=== PATIENT | male | born 1980 | race Asian ===

== ENCOUNTER 2021-08-18 09:57 | Outpatient (REF) | payer MEDICAID, SELFPAY ==
--- NOTE | ~2021-08-18 | US_ITS ---
EXAMINATION: US ABDOMEN LIMITED CLINICAL INFORMATION: Lump. Question hernia of left epigastric area. COMPARISON: None. TECHNIQUE: Grayscale, Doppler, and cine images were obtained throughout the epigastric area. FINDINGS: Within the epigastric area in the region of the patient's palpable findings, there is a prominent, anteriorly-oriented xiphoid process. No abnormal soft tissue mass or fluid collection. No significant abdominal wall hernia. No inflammatory change. US/US abdomen limited IMPRESSION: Mildly prominent, anteriorly-oriented xiphoid process in the region of the patient's palpable findings. No abdominal wall hernia, soft tissue mass, or fluid collection.
== END 2021-08-18 09:58 | disposition home or self-care (01) ==
LOC: HO.HMGCX 09:57
PROVIDERS: PCP Internal Medicine; Visit Provider Physician Assistant
DX: K43.9 Ventral hernia without obstruction or gangrene (principal)
CPT/HCPCS: 76705

== ENCOUNTER 2021-09-14 16:22 | Outpatient (REF) | payer MEDICAID, SELFPAY | END 2021-09-14 16:23 | disposition home or self-care (01) | LOC: HO.MANLNP 16:22 | PROVIDERS: PCP Physician Assistant; Visit Provider Physician Assistant | DX: R35.0 Frequency of micturition (principal) | CPT/HCPCS: 87086 ==

== ENCOUNTER 2021-09-16 12:42 | Outpatient (REF) | payer MEDICAID, SELFPAY ==
[2021-09-16 13:01] LABS: MANUAL DIFF FLAG NO
[2021-09-16 13:43] LABS: Basophils Absolute Auto 0.1 X10*3/uL (0.0-0.2); Basophils Percent Auto 1.1 % (0-2); Eosinophils Absolute Auto 0.2 X10*3/uL (0.0-0.4); Eosinophils Percent Auto 3.3 % (0-4); Hematocrit 44.5 % (42.0-52.0); Hemoglobin 14.9 g/dl (14.0-18.0); Imm Gran Abs Auto 0.02 X10*3/uL (0.00-0.03); Imm Gran Pct Auto 0.4 % (0.0-0.4); Lymphocytes Absolute Auto 1.7 X10*3/uL (1.2-4.9); Lymphocytes Percent Auto 31.4 % (20-40); Mean Corpuscular HGB Conc 33.5 g/dl (31.0-36.0); Mean Corpuscular Hemoglobin 31.1 pg (27.0-33.0); Mean Corpuscular Volume 92.9 fL (80.0-98.0); Mean Platelet Volume 10.7 fL (9.4-12.4); Monocytes Absolute Auto 0.3 X10*3/uL (0.1-1.2); Monocytes Percent Auto 5.6 % (2-11); Neutrophils Absolute Auto 3.1 x10*3/uL (2.0-8.3); Neutrophils Percent Auto 58.2 % (45-73); Platelet Count 195 X10*3/uL (160-400); Red Blood Count 4.79 X10*6/uL (4.60-5.80); Red Cell Distribution Width 12.1 % (11.0-16.0); White Blood Count 5.4 X10*3/uL (4.8-10.8)
[2021-09-16 14:30] LABS: Estimated Average Glucose 97 mg/dL
[2021-09-16 14:50] LABS: TSH reflex Free T4 1.28 uIU/mL (0.32-4.0); Vitamin D 25-OH Total 15.9 ng/mL (>30)
[2021-09-16 16:04] LABS: Folate 8.7 ng/mL (> or = 4.0); Vitamin B12 351 pg/mL (200-900)
== END 2021-09-16 12:43 | disposition home or self-care (01) ==
LOC: HO.LAB 12:42
PROVIDERS: Visit Provider Physician Assistant
DX: R53.83 Other fatigue (principal); R35.0 Frequency of micturition
CPT/HCPCS: 36415; 82306; 82607; 82746; 83036; 84443; 85025

== ENCOUNTER 2022-02-22 13:27 | Outpatient (REF) | payer OTHER, SELFPAY ==
[2022-02-22 16:18] LABS: MANUAL DIFF FLAG NO
[2022-02-22 16:19] LABS: Basophils Absolute Auto 0.1 X10*3/uL (0.0-0.2); Basophils Percent Auto 0.6 % (0-2); Eosinophils Absolute Auto 0.2 X10*3/uL (0.0-0.4); Hematocrit 42.5 % (42.0-52.0); Hemoglobin 14.1 g/dl (14.0-18.0); Imm Gran Abs Auto 0.02 X10*3/uL (0.00-0.03); Imm Gran Pct Auto 0.3 % (0.0-0.4); Lymphocytes Absolute Auto 1.9 X10*3/uL (1.2-4.9); Lymphocytes Percent Auto 24.5 % (20-40); Mean Corpuscular HGB Conc 33.2 g/dl (31.0-36.0); Mean Corpuscular Hemoglobin 30.4 pg (27.0-33.0); Mean Corpuscular Volume 91.6 fL (80.0-98.0); Monocytes Absolute Auto 0.4 X10*3/uL (0.1-1.2); Monocytes Percent Auto 4.8 % (2-11); Neutrophils Absolute Auto 5.4 x10*3/uL (2.0-8.3); Neutrophils Percent Auto 67.8 % (45-73); Platelet Count 187 X10*3/uL (160-400); Red Blood Count 4.64 X10*6/uL (4.60-5.80); Red Cell Distribution Width 12.2 % (11.0-16.0); White Blood Count 7.9 X10*3/uL (4.8-10.8)
[2022-02-22 16:40] LABS: Alanine Aminotransferase 13 U/L (0-40); Albumin Level 4.3 g/dL (3.5-5.0); Alkaline Phosphatase 53 U/L (39-117); Anion Gap 11 (12-20); Aspartate Amino Transferase 17 U/L (5-37); Bilirubin Total 1.4 mg/dL (0.0-1.0); Blood Urea Nitrogen 10 mg/dL (9-16); Calcium 9.1 mg/dL (8.4-10.2); Carbon Dioxide 27 mmol/L (22-29); Chloride 107 mmol/L (96-108); Cholesterol 167 mg/dL; Estimated Glomerular Filt Rate > 60; Glucose Random 86 mg/dL (60-115); HDL Cholesterol 47 mg/dL; LDL Cholesterol Calculated 109 mg/dl; Potassium 3.9 mmol/L (3.3-5.1); Sodium 141 mmol/L (135-145); Total Protein 6.9 g/dL (6.5-8.0); Triglycerides 58 mg/dL
== END 2022-02-22 13:28 | disposition home or self-care (01) ==
LOC: HO.HMGCLDS 13:27
PROVIDERS: Visit Provider Physician Assistant
DX: Z00.00 Encounter for general adult medical examination without abnormal findings (principal); Z13.220 Encounter for screening for lipoid disorders
CPT/HCPCS: 36415; 80053; 80061; 85025

== ENCOUNTER → 2023-04-27 14:17 | Outpatient (BNVA) | payer OTHER, SELFPAY | PROVIDERS: PCP Physician Assistant; Visit Provider Nurse Practitioner Family ==

== ENCOUNTER 2023-06-09 08:21 | Outpatient (REF) | payer OTHER, SELFPAY ==
--- NOTE | ~2023-06-09 | CT_ITS ---
EXAMINATION: CT ENTEROGRAPHY ABDOMEN AND PELVIS WITH CONTRAST CLINICAL INFORMATION: Family history of malignant neoplasm of the chest organs COMPARISON: Previous limited abdominal ultrasound July 2021 TECHNIQUE: Study performed with oral VoLumen (1350 mL) and 480 mL of water to distend the abdomen. The patient was injected with 85 mL Omnipaque 350 intravenous contrast which was administered without adverse effect. Coronal and sagittal reformatted images were obtained at the technologist's workstation. This CT examination was performed using dose optimization techniques as appropriate, variously including the following: *Automated exposure control *Adjustment of mA and/or kV according to patient size (this includes techniques or standardized protocols for targeted exams where dose is matched to indication/reason for exam; i.e. extremities or head) *Use of iterative reconstruction technique DLP: 434 mGy-cm FINDINGS: GASTROINTESTINAL FINDINGS: Stomach: Well-distended and normal in appearance. Small intestine: Satisfactorily distended and normal in appearance. Large intestine: Well-distended and normal in appearance. No perirectal changes demonstrated. The appendix is normal. Additional findings: No abnormal enhancement of the vasa recta or significant mesenteric or retroperitoneal lymphadenopathy is seen. No abdominal abscess or fistulous tract demonstrated. ABDOMINAL AND PELVIC CT FINDINGS: Liver, gallbladder, biliary tract: 1 x 1.5 cm low-attenuation lesion in the posterior segment of the right lobe of the liver axial image 54 series 3 and this has quite questionable peripheral puddling enhancement. Small 5 mm low-attenuation lesion right lobe axial image 60 series 3 Small calcification in the right lobe of the liver. Normal gallbladder. No biliary duct dilatation. Pancreas: Normal Spleen: Normal Adrenal glands and kidneys: There is a small subcentimeter low-attenuation lesion in the upper pole of the left kidney. This probably represents a cyst. No imaging follow-up recommended. The adrenal glands and kidneys are otherwise normal. Ureters and bladder: Normal Lymphovascular structures: Normal Bones: Normal Lung bases: Normal CT/CT enterography IMPRESSION: Small liver lesions, question representing hemangiomas. Otherwise unremarkable CT enterography exam.
[2023-06-09] MEDS: Sorbitol/Mannit/Xanth Imaging 500 ML LIQUID 1500 ML PO (11:38)
[2023-06-09] MEDS: iohexoL 350 MG/ML 100 ML INFUS..BTL IV (11:40)
== END 2023-06-09 08:22 | disposition home or self-care (01) ==
LOC: HO.CT 08:21
PROVIDERS: PCP Internal Medicine; Visit Provider Nurse Practitioner Family
DX: K76.9 Liver disease, unspecified (principal); Z80.0 Family history of malignant neoplasm of digestive organs
CPT/HCPCS: 74177; Q9967

== ENCOUNTER 2023-08-16 08:03 | Outpatient (REF) | payer OTHER, SELFPAY ==
--- NOTE | ~2023-08-16 | XR_ITS ---
EXAMINATION: XR SINUSES CLINICAL INFORMATION: Atypical facial pain COMPARISON: None available. TECHNIQUE: 4 views of paranasal sinuses FINDINGS: Paranasal sinuses appear clear without air-fluid levels. No fractures are identified. No radiodense foreign bodies. XR/XR sinus min 3V IMPRESSION: Unremarkable examination.
== END 2023-08-16 08:04 | disposition home or self-care (01) ==
LOC: HO.XRAY 08:03
PROVIDERS: PCP Internal Medicine; Visit Provider Internal Medicine
DX: G50.1 Atypical facial pain (principal)
CPT/HCPCS: 70220

== ENCOUNTER 2023-10-28 13:45 | Outpatient (AMB) | payer OTHER, SELFPAY ==
--- NOTE | 2023-10-28 13:58 | MHC.OFFVIS ---
Intake Vital Signs 10/28/23 14:01 Height 5 ft 6 in Weight 171 lb BMI 27.6 BP 122/68 Blood Pressure Location Lt brachial Position Sitting Pulse 83 Intake Visit Reasons: 6 mnth follow up Intake Note: Patient [address] scan results. Patient cc: diarrhea in the morning and denies any other GI issues. Wall And Floor Tiler Required: No Accompanied by: Self / Same As Patient Allergies adhesive tape Allergy (Unknown, Verified 10/28/23 13:58) Rash peanut mold Allergy (Mild, Uncoded 04/27/23 14:45) Itching HPI 6 mnth follow up HPI Details LAST VISIT: Family history of cancer of small intestine Patient denies any GI concerning symptoms. Here because family history of small bowel cancer. Will order CT enterography and colonography for now. If any abnormal findings patient will be sent for colonoscopy. Will hold off for now. Patient will call the office if he will experience any blood in his stools, black stools, unintentional weight loss, ribbon like stools. If he will experience any change in his bowel habits that will include diarrhea, mucus in his stool. I will see patient in 6 months, sooner on as needed basis. Patient is agreeable to this plan and verbalizes understanding of instructions. He was given the opportunity to ask questions and all questions answered. ? Thank you for allowing me to participate in his care Plan Orders Orders CT colonography 04/27/23 Z80.0 - Family history of malignant neoplasm of digestive organs CT enterography 04/27/23 Z80.0 - Family history of malignant neoplasm of digestive organs TODAY'S VISIT: Patient is here today for follow-up and to discuss CT colonography and enterography results. As mentioned above patient has a family history of small-bowel cancer. Normal CT results discussed with patient. Patient reports occasional diarrhea especially in the morning. Patient denies any dyspepsia, dysphagia or odynophagia. Denies any melena, hematochezia, unintentional weight loss or ribbon like stools. Patient admits to being under stress as he is selling his condo and moving to his friend's house. Patient denies any other GI concerning symptoms PFSH Family History Paternal Grandfather Colon cancer Social History Household Members: None Alcohol intake: current Alcohol intake frequency: a few times a month Patient Tobacco Use Status: Never used Tobacco e-Cigarette/Vaping Use: Never Used Review of Systems Const Denies weight gain and Denies weight loss ENT Reports no additional complaints, Denies dysphagia and Denies odynophagia Card Reports no additional complaints Resp Reports no additional complaints GI Denies abdominal pain, Denies belching, Denies melena, Denies bloating, Denies change in bowel habits, Denies dysphagia, Denies excessive flatus, Denies dyspepsia, Denies heartburn, Denies diarrhea, Denies loose stools, Denies nausea, Denies odynophagia and Denies vomiting Reports no additional complaints Musc Reports no additional complaints Neuro Reports no additional complaints Psych Reports no additional complaints Endo Reports no additional complaints Physical Exam Vital Signs: Last Vital Signs Pulse 83 10/28/23 14:01 BP 122/68 10/28/23 14:01 BMI result Body Mass Index 27.6 Const General: healthy appearing, no acute distress and well developed Nutritional Appearance: well nourished Orientation/consciousness: patient oriented x3 Resp Effort & Inspection: normal respiratory effort, able to speak in complete sentences, no tracheal deviation and symmetric chest movement Auscultation: clear to auscultation bilaterally Cardio Rate: regular rate GI Inspection: Yes normal to inspection and No distended Palpation (GI): Soft to palpation, not firm, nontender and No hepatosplenomegaly present Auscultation: normal bowel sounds General: Yes no CVA tenderness Back/Spine/Pelvis Back: no CVA tenderness Skin General skin exam: elasticity normal, turgor normal and dry skin Neuro General: patient oriented x3 Psych Appearance: grossly normal Mental Status: mental status grossly normal Results Reviewed Results Reviewed: CT ENTEROGRAPHY: FINDINGS: GASTROINTESTINAL FINDINGS: Stomach: Well-distended and normal in appearance. Small intestine: Satisfactorily distended and normal in appearance. Large intestine: Well-distended and normal in appearance. No perirectal changes demonstrated. The appendix is normal. Additional findings: No abnormal enhancement of the vasa recta or significant mesenteric or retroperitoneal lymphadenopathy is seen. No abdominal abscess or fistulous tract demonstrated. ABDOMINAL AND PELVIC CT FINDINGS: Liver, gallbladder, biliary tract: 1 x 1.5 cm low-attenuation lesion in the posterior segment of the right lobe of the liver axial image 54 series 3 and this has quite questionable peripheral puddling enhancement. Small 5 mm low-attenuation lesion right lobe axial image 60 series 3 Small calcification in the right lobe of the liver. Normal gallbladder. No biliary duct dilatation. Pancreas: Normal Spleen: Normal Adrenal glands and kidneys: There is a small subcentimeter low-attenuation lesion in the upper pole of the left kidney. This probably represents a cyst. No imaging follow-up recommended. The adrenal glands and kidneys are otherwise normal. Ureters and bladder: Normal Lymphovascular structures: Normal Bones: Normal Lung bases: Normal CT/CT enterography IMPRESSION: Small liver lesions, question representing hemangiomas. Otherwise unremarkable CT enterography exam. Assessment & Plan Assessment & Plan (1) Family history of cancer of small intestine: Code(s): Z80.0 - Family history of malignant neoplasm of digestive organs (2) Liver hemangioma: Code(s): D18.03 - Hemangioma of intra-abdominal structures Plan CT results discussed with patient. Patient will return in 1 year. Will order limited ultrasound of the liver to evaluate hemangiomas as seen on CT scan. Patient will call our office if he will have any GI concerning symptoms. He is agreeable to this plan and verbalizes understanding of instructions. He was given the opportunity to ask questions and all questions answered. Thank you for allowing me to participate in his care Coding Level of Care Code Est Pt Level 3 (84042) Diagnoses Family history of cancer of small intestine Z80.0 Liver hemangioma D18.03 Time Spent (min) 30 Comment 20 minutes spent with patient and additional 10 minutes spent reviewing his records
[2023-10-28 14:01] VITALS: BP 122/68; PULSE 83; BMI 27.6
== END 2023-10-28 14:42 | disposition home or self-care (01) ==
PROVIDERS: PCP Physician Assistant; Visit Provider Nurse Practitioner Family
DX: Z80.0 Family history of malignant neoplasm of digestive organs (principal); D18.03 Hemangioma of intra-abdominal structures
CPT/HCPCS: 99213

== ENCOUNTER → 2023-10-28 13:45 | Outpatient (BNVA) | payer OTHER, SELFPAY | PROVIDERS: PCP Physician Assistant; Visit Provider Nurse Practitioner Family ==

== ENCOUNTER 2024-03-02 08:17 | Outpatient (REF) | payer OTHER, SELFPAY ==
[2024-03-02 13:09] LABS: MANUAL DIFF FLAG NO
[2024-03-02 13:33] LABS: Basophils Absolute Auto 0.1 X10*3/uL (0.0-0.2); Basophils Percent Auto 1.2 % (0-2); Eosinophils Absolute Auto 0.4 X10*3/uL (0.0-0.4); Eosinophils Percent Auto 6.9 % (0-4); Hematocrit 47.3 % (42.0-52.0); Hemoglobin 15.8 g/dl (14.0-18.0); Imm Gran Abs Auto 0.01 X10*3/uL (0.00-0.03); Imm Gran Pct Auto 0.2 % (0.0-0.4); Lymphocytes Absolute Auto 1.5 X10*3/uL (1.2-4.9); Lymphocytes Percent Auto 25.3 % (20-40); Mean Corpuscular HGB Conc 33.4 g/dl (31.0-36.0); Mean Corpuscular Hemoglobin 30.7 pg (27.0-33.0); Mean Corpuscular Volume 91.8 fL (80.0-98.0); Mean Platelet Volume 10.9 fL (9.4-12.4); Monocytes Absolute Auto 0.4 X10*3/uL (0.1-1.2); Monocytes Percent Auto 6.2 % (2-11); Neutrophils Absolute Auto 3.5 x10*3/uL (2.0-8.3); Neutrophils Percent Auto 60.2 % (45-73); Platelet Count 203 X10*3/uL (160-400); Red Blood Count 5.15 X10*6/uL (4.60-5.80); Red Cell Distribution Width 12.2 % (11.0-16.0); White Blood Count 5.8 X10*3/uL (4.8-10.8)
[2024-03-02 13:45] LABS: Estimated Average Glucose 105 mg/dL; Hemoglobin A1c % 5.3 % (<6.0)
[2024-03-02 14:15] LABS: Erythrocyte Sedimentation Rate 1 MM/HR (0-15)
[2024-03-02 14:53] LABS: Alanine Aminotransferase 38 U/L (0-40); Albumin Level 4.4 g/dL (3.5-5.0); Alkaline Phosphatase 56 U/L (39-117); Amylase 34 U/L (28-100); Anion Gap 13 (12-20); Aspartate Amino Transferase 23 U/L (5-37); Bilirubin Total 1.9 mg/dL (0.0-1.0); Blood Urea Nitrogen 9 mg/dL (9-16); C Reactive Protein < 0.04 mg/dL (< or = 0.50); Calcium 9.6 mg/dL (8.4-10.2); Carbon Dioxide 28 mmol/L (22-29); Chloride 106 mmol/L (96-108); Cholesterol 209 mg/dL (<200); Estimated Glomerular Filt Rate > 60; Gamma Glutamyl Transpeptidase 19 U/L (11-51); Glucose Random 89 mg/dL (60-115); HDL Cholesterol 40 mg/dL (>40); Iron 195 mcg/dL (45-160); LDL Cholesterol Calculated 139 mg/dL (<100); Lipase 17 U/L (8-78); Percent Iron Saturation 56 % (15-50); Sodium 143 mmol/L (135-145); Total Iron Binding Capacity 350 mcg/dL (228-428); Total Protein 7.3 g/dL (6.5-8.0); Triglycerides 150 mg/dL (<150); Unsaturated Iron Binding 155 ug/dL
[2024-03-02 15:02] LABS: Ferritin 251 ng/mL (20-250); Vitamin D 25-OH Total 14.2 ng/mL (>30)
[2024-03-05 11:24] LABS: Free Prostate Spec Ag 0.2 ng/mL; Percent Free Prostate Spec Ag 29 % (calc) (>25); Prostate Specific Ag Total 0.7 ng/mL (< OR = 4.0)
== END 2024-03-02 08:18 | disposition home or self-care (01) ==
LOC: HO.MANLDS 08:17
PROVIDERS: Visit Provider Physician Assistant
DX: Z00.00 Encounter for general adult medical examination without abnormal findings (principal); Z12.5 Encounter for screening for malignant neoplasm of prostate; Z13.6 Encounter for screening for cardiovascular disorders; A07.8 Other specified protozoal intestinal diseases
CPT/HCPCS: 36415; 80053; 80061; 82150; 82306; 82728; 82977; 83036; 83540; 83690; 84154; 85025; 85652; 86140

== ENCOUNTER 2024-03-16 08:13 | Outpatient (REF) | payer OTHER, SELFPAY ==
[2024-03-16 13:53] LABS: Iron 148 mcg/dL (45-160); Percent Iron Saturation 44 % (15-50); Total Iron Binding Capacity 337 mcg/dL (228-428); Unsaturated Iron Binding 189 ug/dL
[2024-03-16 13:57] LABS: Ferritin 210 ng/mL (20-250)
== END 2024-03-16 08:14 | disposition home or self-care (01) ==
LOC: HO.MANLDS 08:13
PROVIDERS: Visit Provider Physician Assistant
DX: Z00.00 Encounter for general adult medical examination without abnormal findings (principal); A07.8 Other specified protozoal intestinal diseases
CPT/HCPCS: 36415; 82728; 83540

== ENCOUNTER 2024-05-22 08:06 | Outpatient (REF) | payer OTHER, SELFPAY ==
[2024-05-22 14:35] LABS: Vitamin D 25-OH Total 37.5 ng/mL (>30)
== END 2024-05-22 08:07 | disposition home or self-care (01) ==
LOC: HO.MANLDS 08:06
PROVIDERS: Visit Provider Physician Assistant
DX: Z00.00 Encounter for general adult medical examination without abnormal findings (principal)
CPT/HCPCS: 36415; 82306

== ENCOUNTER 2024-10-26 14:13 | Outpatient (AMB) | payer OTHER, SELFPAY ==
[2024-10-26 14:15] VITALS: BP 142/76; PULSE 92; O2SAT 96; BMI 27.5
--- NOTE | 2024-10-26 14:15 | MHC.OFFVIS ---
Vital Signs 10/26/24 14:15 Height 5 ft 6 in Weight 170 lb 10.205 oz BMI 27.5 BP 142/76 H Blood Pressure Location Rt brachial Position Sitting Pulse 92 Pulse Source Pulse Oximeter Pulse Oximetry (%) 96 Oxygen Delivery Method Room Air Intake Visit Reasons: 1 year follow up Intake Note: ESTABLISHED PATIENT Reason; scheduled in office 1 YR FUV Changes/concerns? Pt reports mild constipation. No other concerns. Pt also reporting urology concerns. Pt has not seen Urology since he lived in [place]. Pharmacy verified? [facility] Signals Collector/Analyst Required: No Allergies mold Allergy (Severe, Verified 10/26/24 14:19) Itching adhesive tape Allergy (Unknown, Verified 10/26/24 14:19) Rash HPI HPI 1 year follow up: Details: LAST VISIT: Family history of cancer of small intestine Liver hemangioma Plan CT results discussed with patient. Patient will return in 1 year. Will order limited ultrasound of the liver to evaluate hemangiomas as seen on CT scan. Patient will call our office if he will have any GI concerning symptoms. He is agreeable to this plan and verbalizes understanding of instructions. He was given the opportunity to ask questions and all questions answered. TODAY'S VISIT: Patient is here today for follow-up. Patient reports that he notice his stool is darker now. Denies having melena or hematochezia, unintentional weight loss or ribbon like stools, however he reports that he feels like he is more constipated now. Patient does not drink enough fluids and his diet does not consist of much of vegetables. Patient denies any GI concerning symptoms. Here today to re-evaluate liver hemangiomas. Patient will go for limited ultrasound to evaluate for that. Patient denies any abdominal pain or discomfort. Reports noticed since August to have worsening urinary hesitancy. Patient reports that he saw urologist when he was in [place] on the visit and he was told that he might have enlarged prostate. [facility] Family History Paternal Grandfather Colon cancer Social History Household Members: None Alcohol intake: current Alcohol intake frequency: a few times a month Patient Tobacco Use Status: Never used Tobacco e-Cigarette/Vaping Use: Never Used Review of Systems Const Denies weight gain and Denies weight loss ENT Reports no additional complaints, Denies dysphagia and Denies odynophagia Card Reports no additional complaints Resp Reports no additional complaints GI Denies abdominal pain, Denies belching, Denies melena, Denies bloating, Denies change in bowel habits, Reports constipation, Denies dysphagia, Denies excessive flatus, Denies dyspepsia, Denies heartburn, Denies diarrhea, Denies loose stools, Denies nausea, Denies odynophagia and Denies vomiting Reports no additional complaints Musc Reports no additional complaints Neuro Reports no additional complaints Psych Reports no additional complaints Endo Reports no additional complaints Physical Exam Const General: healthy appearing, no acute distress and well developed Nutritional Appearance: well nourished Orientation/consciousness: patient oriented x3 Resp Effort & Inspection: normal respiratory effort, able to speak in complete sentences, no tracheal deviation and symmetric chest movement Auscultation: clear to auscultation bilaterally Cardio Rate: regular rate GI Inspection: Yes normal to inspection and No distended Palpation (GI): Soft to palpation, not firm, nontender and No hepatosplenomegaly present Auscultation: normal bowel sounds General: Yes no CVA tenderness Back/Spine/Pelvis Back: no CVA tenderness Skin General skin exam: elasticity normal, turgor normal and dry skin Neuro General: patient oriented x3 Psych Appearance: grossly normal Mental Status: mental status grossly normal Assessment & Plan Assessment & Plan (1) Liver hemangioma: Code(s): D18.03 - Hemangioma of intra-abdominal structures (2) Family history of cancer of small intestine: Code(s): Z80.0 - Family history of malignant neoplasm of digestive organs (3) Urinary hesitancy: Code(s): R39.11 - Hesitancy of micturition (4) Constipation: Code(s): K59.00 - Constipation, unspecified Qualifiers: Constipation type: slow transit constipation Qualified Code(s): K59.01 - Slow transit constipation Plan Limited ultrasound of the abdomen to re-evaluate liver hemangiomas. Patient reports urinary hesitancy possible due to enlarged prostate. Patient will be referred to urologist. Dark stool, negative for melena hematochezia. Patient will think about it if he wants to go for colonoscopy which was offered him today. Patient does have a family history of small intestine cancer. Paternal grandfather which he was not close with and does not know for sure. Patient reports constipation. Increase fluid intake and activity to promote better bowel motility. Patient was encouraged to get [id number] fiber with probiotics. Increase fiber in his diet as well. Patient will follow-up in our office in 1 year. He will call us if he will have any GI concerning symptoms. He is agreeable to this plan and verbalizes understanding of instructions. He was given the opportunity to ask questions and all questions answered. Thank you for allowing me participate in his care Orders: Orders US abdomen limited Today D18.03 - Hemangioma of intra-abdominal structures Referrals Urology Referral R39.11 - Hesitancy of micturition Coding Level of Care Code Est Pt Level 3 (43101) Diagnoses Liver hemangioma D18.03 Family history of cancer of small intestine Z80.0 Urinary hesitancy R39.11 Slow transit constipation K59.01 Constipation type: slow transit constipation Time Spent (min) 25 Comment 15 minutes spent with patient and additional 10 minutes spent reviewing his records
== END 2024-10-26 14:42 | disposition home or self-care (01) ==
PROVIDERS: PCP Physician Assistant; Visit Provider Nurse Practitioner Family
DX: D18.03 Hemangioma of intra-abdominal structures (principal); Z80.0 Family history of malignant neoplasm of digestive organs; R39.11 Hesitancy of micturition; K59.01 Slow transit constipation
CPT/HCPCS: 99213

== ENCOUNTER → 2024-10-26 14:13 | Outpatient (BNVA) | payer OTHER, SELFPAY | PROVIDERS: PCP Physician Assistant; Visit Provider Nurse Practitioner Family ==

== ENCOUNTER 2024-12-12 07:43 | Outpatient (REF) | payer OTHER, SELFPAY ==
--- NOTE | ~2024-12-12 | US_ITS ---
CLINICAL HISTORY: D18.03 - Hemangioma of intra-abdominal structures Limited abdominal ultrasound Comparison: None Findings: The liver is normal in size, measuring 15.5 cm in length. Normal echogenicity with an echogenic lesion in the right lobe of the liver measuring 2.0 x 2.0 x 1.8 cm, likely a hemangioma. Hepatopetal flow is seen within the portal vein. The common bile duct is normal in diameter, measuring 0.3 cm. No cholelithiasis. No wall thickening or pericholecystic fluid. Negative sonographic Orosco sign. The right kidney is normal in echogenicity and size, measuring 11.5 cm in length. Unremarkable limited evaluation of the pancreas. Impression: 2.0 cm echogenic lesion in the right lobe of the liver is likely a hemangioma. Negative for acute cholecystitis. This document has been electronically signed by: Joanne Cobb MD on 12/12/2024 21:14:30
--- OUTSIDE RECORDS SUMMARY | 2024-12-12 07:45 | XMS_ITS | Continuity of Care Document ---
Demographics Address [address] [place] [address] Home Phone Mobile Phone Email Address Preferred Language en Marital Status Never Rastafarian Affiliation Unknown Race White Ethnic Group Not or Lati no Author Organization [facility] Address [address] [place] [address] [place] [address] Assessment No assessment recorded. Plan of Treatment Reminders Order Date Submit Date Provider Last Modified By Organization Details Last Modified Time Details Appointments ANNUAL EXAM 2024 02:15P MOE EUBANKS Not available Not available Not available Lab iron + TIBC + ferritin, serum 2024 025 [email or web address] [facility], [address] [place] [address], [id number], 11/27/2024 09:46:11 CMP, serum or plasma 2024 025 [email or web address] [facility], [address] [place] [address], [id number], 11/27/2024 09:46:11 CBC w/ auto diff 2024 025 [email or web address] [facility], [address] [place] [address], [id number], 11/27/2024 09:46:11 hemoglobi n A1c, QN, blood 2024 025 [email or web address] [facility], [address] [place] [address], [id number], 11/27/2024 09:46:11 testoster one, free + total, serum 2024 025 [email or web address] [facility], [address] [place] [address], [id number], 11/27/2024 09:46:11 vitamin B12 + folate, serum or blood 2024 025 [facility], [address] [place] [address], [id number], 11/27/2024 09:46:11 vitamin D, 25-hydrox y, total, serum 2024 025 [facility], [address] [place] [address], [id number], 11/27/2024 09:46:10 ESR (erythroc yte sedimenta tion rate), blood 2024 025 [facility], [address] [place] [address], [id number], 11/27/2024 09:46:11 C-reactiv e protein, quantitat libra, serum or plasma 2024 025 [facility], [address] [place] [address], [id number], 11/27/2024 09:46:11 TSH + free T4, serum 2024 025 [facility], [address] [place] [address], [id number], 11/27/2024 09:46:11 PTH (parathyr oid hormone), intact + calcium, serum or plasma 2024 025 [facility], [address] [place] [address], [id number], 11/27/2024 09:46:11 Referral None recorded. Procedures None recorded. Surgeries None recorded. Imaging None recorded. Medication Orders None recorded. Patient TargetsNo targets recorded. Patient InstructionsNo instructions recorded. Reason for Referral None Reported. Problems Name Problem SNOMED Code Status Onset Date Resolution Date Notes Provider Name and Address Organization Details Recorded Time History of depression 081706725 [facility] 8 12:22:54 Lipoma of skin 762315839 Active 2022 MOE BAUMAN [address] [place] [address], [id number], [facility] 3 15:52:18 Eczema 97779611 Active 2022 MOE BAUMAN [address] [place] [address], [id number], [facility] 3 15:56:40 Weight gain 9014368 Active 2022 MOE BAUMAN [address] [place] [address], [phone], [facility] 3 15:58:06 Atypical facial pain 15540350 Active 2022 MOE BAUMAN [address] [place] [address], [phone], [facility] 3 10:31:19 Diarrhea 64249136 Active 2023 MOE BAUMAN [address] [place] [address], [phone], [facility] 4 15:41:25 Esophageal dysphagia 38364628 Active 2023 MOE BAUMAN [address] [place] [address], [address], [facility] 4 15:58:58 Lipoma of head and/or neck 892700428 Active 2023 MOE BAUMAN [address] [place] [address], [id number], [facility] 4 16:00:52 Fatigue 83471436 Active 2024 MOE BAUMAN [address] [place] [address], [phone], [facility] 5 09:41:00 Influenza caused by Influenza A virus 241357853 Active 2024 MOE BAUMAN [address] [place] [address] [place], [address], [facility] 5 09:42:03 Problem Notes None recorded. Medical Equipment None Reported. Allergies No known drug allergies Medications Name Sig Start Date Stop Date Status Note LastModified by Organization Details LastModified Time meclizine 12.5 mg tablet TAKE 1 TABLET BY MOUTH EVERY 6 HOURS NEEDED 07/31 completed Not Available Not Available Not Available triamcinolo ne acetonide 0.1 % topical cream APPLY THIN COAT TO AFFECTED AREA TWICE A DAY active Not Available Not Available No t Available doxycycline monohydrate 100 mg capsule TAKE 1 CAPSULE BY MOUTH TWICE A DAY FOR 10 DAYS 11/27 completed Not Available Not Available Not Available fluticasone propionate 50 mcg/actuati on nasal spray,suspe nsion USE 2 SPRAYS IN EACH NOSTRIL EVERY DAY 07/31 completed Not Available Not Available Not Available cyclobenzap rine 5 mg tablet TAKE 1 TABLET BY MOUTH 3 TIMES A DAY NEEDED FOR PAIN 11/27 completed Not Available Not Available Not Available cholecalcif clarence (vitamin D3) 1,250 mcg (50,000 unit) capsule TAKE 1 CAPSULE BY MOUTH ONCE A WEEK 09/14 completed Not Available Not Available Not Available Vitals Date Recorded Body height Body mass index (BMI) Body weight Heart rate Oxygen saturation Oxygen saturation in Arterial blood by Pulse oximetry Systolic blood pressure Diastolic blood pressure Provider Name and Address Organization Details Last Updated DateTime 5 167.01 cm 27 kg/m2 01642.9 7 g 84 /min 97 % 97 % 112 mm[Hg] 78 mm[Hg] Celena Aldrich [facility] 5 09:24:08 Social History Question Answer Notes LastModified by Organizat ion Details LastModified Time Tobacco Smoking Status Never Smoker Not Available [employer] 08/26/2020 03:36:24 What Was The Date Of Your Most Recent Tobacco Screening? 11/27/2024 [email or web address] Information not available 11/27/2024 Do You Or Have You Ever Used Any Other Forms Of Tobacco Or Nicotine? No [email or web address] Information not available 02/21/2023 Sex: Unknown Functional Status None recorded. Mental Status None recorded. Family History Relationship Description Onset Age of this Age Resolved Age Notes LastModified by Organization Details LastModified Time Paternal Grandfather Malignant tumor of colon [email or web address] Not available 2021 15:45:31 Medical History No medical history recorded. Immunizations Vaccine Type Date Status Note Provider Nam e and Address Organization Details Recorded Time COVID-19, mRNA, LNP-S, PF, 30 mcg/0.3 mL dose 02/20/2021 completed Iesha cam [facility] 07/31/2021 09:23:33 COVID-19, mRNA, LNP-S, PF, 30 mcg/0.3 mL dose 03/13/2021 completed Iesha cam [facility] 07/31/2021 09:23:38 Past Encounters Encounter ID Performer Location Encounter Start Date Encounter Closed Date Diagnosis/Indication Diagnosis SNOMED-CT Code Diagnosis ICD10 Code Diagnosis Note [id number] OME BAUMAN [facility] [address] [place] [address] 11/27/2024 09:14:21 11/27/2024 10:25:17 Fatigue 45564152 R53.83 will check lab work Influenza caused by Influenza A virus 533110067 J09.X2 resolved Health Concerns Section Related Observation LastModified by Organization Detai ls LastModified Time None Recorded Concern Status LastModified by Organization Details LastModified Time None Recorded Payers Encounter Date Sequence Insurance Name Policy Number Policy Bowman Covered Member ID Bowman Member ID Guarantor Name 11/27/2024 1 [facility] [id number] 1 Caesar Ashley [id number] Caesar Ashley Notes Date Note Type Note Provider Name and Address Organization Details Recorded Time 5 text/html c/o fatigue the patient reports that he is having a lot of fatiguethe patient reports that it worsens after eating, especially after high caloric, high carb foods is seeing uro for urinary hesitancy did have the Flu for about a week which he has recovered from denies headaches, blurred vision, body aches no fever, no chills, no sob, no chest pain eating okay, no bloating, abdominal pain, no n/v/d the patient denies constipationdenies any blood in the urine or stooldenies flank pain MOE BAUMAN [address] [place], [address], [facility] 11/27/2024 09:48:31
--- OUTSIDE RECORDS SUMMARY | 2024-12-12 07:45 | XMS_ITS | Data Portability ---
Demographics Address [address] [place] [address] Home Phone Mobile Phone Email Address Preferred Language en Marital Status Never Amish Affiliation Unknown Race White Ethnic Group Not or Lati no Author Organization [facility] Home Service Address [address] [place] [address] Assessment No assessment recorded. Plan of Treatment Reminders Order Date Submit Date Provider Last Modified By Organization Details Last Modified Time Details Appointments ANNUA L EXAM 2024 02:15P MOE EUBANKS Not available Not available Not available Lab iron + TIBC + ximena tin, serum 2024 025 [email or web address] [facility], [address] [place] [address], [id number], 11/27/2024 09:46:11 CMP, serum or plasm a 2024 025 [email or web address] [facility], [address] [place] [address], [id number], 11/27/2024 09:46:11 CBC w/ auto diff 2024 025 [email or web address] [facility], [address] [place] [address], [id number], 11/27/2024 09:46:11 hemog lobin A1c, QN, blood 2024 025 [email or web address] [facility], [address] [place] [address], [address], 11/27/2024 09:46:11 testo stero ne, free + total , serum 2024 025 [email or web address] [facility], [address] [place] [address], [address], 11/27/2024 09:46:11 vitam in B12 + folat e, serum or blood 2024 025 [email or web address] [facility], [address] [place] [address], [place], [address], 11/27/2024 09:46:11 vitam in D, 25-hy droxy , total , serum 2024 025 [email or web address] [facility], [address] [place] [address], [place], [address], 11/27/2024 09:46:10 ESR (eryt hrocy te sedim entat ion rate) , blood 2024 025 [email or web address] [facility], [address] [place] [address], [id number], 11/27/2024 09:46:11 C-karina ctive prote in, quant itati ve, serum or plasm a 2024 025 [email or web address] [facility], [address] [place] [address], [address], 11/27/2024 09:46:11 TSH + free T4, serum 2024 025 ry [facility], [address] [place] [address], [id number], 11/27/2024 09:46:11 PTH (para thyro id hormo ne), intac t + calci um, serum or plasm a 2024 025 [email or web address] [facility], [address] [place] [address], [address], 11/27/2024 09:46:11 ESR (eryt hrocy te sedim entat ion rate) , blood 2023 024 [facility], [address] [place] [address], [id number], 02/24/2024 15:53:08 C-karina ctive prote in, quant itati ve, serum or plasm a 2023 024 [facility], [address] [place] [address], [place], [address], 02/24/2024 15:53:09 gamma -glut amyl trans feras e (ggt) , serum 2023 024 [facility], [address] [place] [address], [id number], 02/24/2024 15:53:09 iron + TIBC + ximena tin, serum 2023 024 [facility], [address] [place] [address], [id number], 03/19/2024 11:14:31 amyla se + lipas e, serum 2023 024 [facility], [address] [place] [address], [place], [address], 02/24/2024 15:53:09 calpr otect in, stool 2023 024 [facility], [address] [place] [address], [address], 02/24/2024 15:53:08 CMP, serum or plasm a 2023 024 [facility], [address] [place] [address], [place], [address], 02/24/2024 15:52:24 lipid panel , blood 2023 024 [facility], [address] [place] [address], [id number], 02/24/2024 15:52:24 CBC w/ auto diff 2023 024 [facility], [address] [place] [address], [place], [address], 02/24/2024 15:52:24 hemog lobin A1c, QN, blood 2023 024 [facility], [address] [place] [address], [address], 02/24/2024 15:52:24 vitam in D, 25-hy droxy , total , serum 2023 024 [facility], [address] [place] [address], [place], [address], 05/23/2024 11:22:36 PSA, total + free, serum or plasm a 2023 024 [facility], [address] [place] [address], [address], 03/06/2024 11:23:24 CMP, serum or plasm a 2022 023 [facility], [address] [place] [address] [place], [address], 02/21/2023 16:51:39 lipid panel , blood 2022 023 [facility], [address] [place] [address] [place], [address], 02/21/2023 16:51:39 CBC w/ auto diff 2022 023 [facility], [address] [place] [address] [place], [address], 02/21/2023 16:51:38 PSA, serum or plasm a 2022 023 [facility], [address] [place] [address] [place], [address], 02/21/2023 16:51:39 CMP, serum or plasm a 2021 [facility], [address] [place] [address], [address], 02/17/2022 15:55:14 lipid panel , blood 2021 [facility], [address] [place] [address], [address], 02/17/2022 15:55:13 CBC w/ auto diff 2021 [facility], [address] [place] [address], [address], 02/23/2022 11:50:04 hemog lobin A1C/h emogl obin total , QN, blood 2020 [facility], [address] [place] [address], [address], 09/18/2021 10:57:38 cultu re, urine + sensi tivit y 2020 [facility], [address] [place] [address], [address], 09/15/2021 15:35:00 urina lysis , dipst ick 2020 [facility], [address], [place], [address], 09/14/2021 14:59:57 vitam in D, 25-hy droxy , total , serum 2020 [facility], [address] [place] [address], [address], 09/18/2021 10:57:38 vitam in B12 + folat e, serum or blood 2020 [facility], [address] [place] [address], [address], 09/18/2021 10:57:38 CMP, serum or plasm a 2020 021 [facility], [address] [place] [address], [place], [address], 09/14/2021 14:36:04 TSH + free T4, serum 2020 021 [facility], [address] [place] [address], [place], [address], 09/14/2021 14:36:04 CBC w/ diff 2020 021 [facility], [address] [place] [address], [place], [address], 09/18/2021 10:57:38 Referral gener al surge on refer ral 2023 024 [facility], [address], [place], [address], 02/27/2024 08:59:36 vadim ic couns elor refer ral 2023 024 [facility], [address], [place], [address], 02/27/2024 08:59:35 derma tolog ist refer ral 2022 023 [email or web address] 10 [facility], [address] , [place], [address], 02/23/2023 08:22:17 gastr jd reilly ist refer ral 2022 023 [email or web address] 10 [facility] [place] [facility], [address] [place] [address] Dr, [facility], [place], [address], 02/23/2023 08:22:34 gastr jd reilly ist refer ral 2021 022 [facility], [address] [place], [address], 02/19/2022 09:46:03 Procedures None recor ded. Surgeries None recor ded. Imaging None recor ded. Medication Orders triam cinol one aceto nide 0.1 % topic al cream 2023 024 [id number], [address] [facility], [place], [address], 02/24/2024 15:41:22 Patient TargetsNo targets recorded. Patient InstructionsNo instructions recorded. Reason for Referral Airline Counter Agent Referral for Screening colonoscopy family history of colon cancer Referring Physician: [facility], Encounter Date: 02/17/2022 Therapy Manager Referral for L ipoma of skin lipoma of the neck causing discomfort and increasing in size Referring Physician: [facility], Encounter Date: 02/21/2023 Airline Counter Agent Referral for Family history of cancer of colon fam hx of colon cancer, needs screening Referring Physician: [facility], Encounter Date: 02/21/2023 Genetic Counselor Referral f or Family history of Alzheimer's disease significant fam hx of alzheimer's, pancreatic cancer, brain tumors Referring Physician: [facility], Encounter Date: 02/24/2024 General Surgeon Referral for Lipoma of head and/or neck lipoma of the neck, right side, getting bigger and irriating neck Referring Physician: [facility], Encounter Date: 02/24/2024 Results Created Date Observation Date Name Description Value Unit Range Abnormal Flag Note LastModifiedBy Organization Detail LastModifiedTime 09/14/20 21 09/14/2021 urina lysis , dipst ick Leukocytes Negati ve Not Available [facility] [address], [place], [address], 09/14/2021 14:40:30 09/14/20 21 09/14/2021 urina lysis , dipst ick Nitrite negati ve Not Available [facility] [address], [place], [address], 09/14/2021 14:40:30 09/14/20 21 09/14/2021 urina lysis , dipst ick Urobilinogen .2 Not Available [facility] [address], [place], [address], 09/14/2021 14:40:30 09/14/20 21 09/14/2021 urina lysis , dipst ick Protein Negati ve Not Available [facility] [address], [place], [address], 09/14/2021 14:40:30 09/14/20 21 09/14/2021 urina lysis , dipst ick pH 6.[address] [facility] [address], [place], [address], 09/14/2021 14:40:30 09/14/20 21 09/14/2021 urina lysis , dipst ick Blood Negati ve Not Available [facility] [address], [place], [address], 09/14/2021 14:40:30 09/14/20 21 09/14/2021 urina lysis , dipst ick Specific Pomerene 1.015 Not Available [facility] [address], [place], [address], 09/14/2021 14:40:30 09/14/20 21 09/14/2021 urina lysis , dipst ick Ketone Negati ve Not Available [facility] [address], [place], [address], 09/14/2021 14:40:30 09/14/20 21 09/14/2021 urina lysis , dipst ick Bilirubin Negati ve Not Available [facility] [address], [place], [address], 09/14/2021 14:40:30 09/14/20 21 09/14/2021 urina lysis , dipst ick Glucose Negati ve Not Available [facility] [address], [place], [address], 09/14/2021 14:40:30 09/14/20 21 09/14/2021 urina lysis , dipst ick Appearance Clear Not Available [facility] [address], [place], [address], 09/14/2021 14:40:30 09/14/20 21 09/14/2021 urina lysis , dipst ick Color Pale Yellow Not Available [facility] [address], [place], [address], 09/14/2021 14:40:30 08/20/20 21 08/18/2021 US, abdom inal wall No observ ation record ed. ngwinner Not Available 2020 09:30:12 08/18/20 23 08/16/2023 XR, sinus es, paran gifty, 3 or more view No observ ation record ed. [facility] Central Scheduling [address] [facility], [place], [address], 08/19/2023 14:00:13 Result Notes None recorded. Problems Name Problem SNOMED Code Status Onset Date Resolution Date Notes Provider Name and Address Organization Details Recorded Time History of depression 823143939 Active 2017 2005 Chelsea cam [facility] 8 12:22:54 Lipoma of skin 799103525 Active 2022 MOE BAUMAN [address], [place], [address], [facility] 3 15:52:18 Eczema 27129358 Active 2022 MOE BAUMAN [address] [place], [address], [facility] 3 15:56:40 Weight gain 5002455 Active 2022 MOE BAUMAN [address] [place], [address], [facility] 3 15:58:06 Atypical facial pain 98544831 Active 2022 MOE BAUMAN [address] [place], [address], [facility] 3 10:31:19 Diarrhea 09025478 Active 2023 MOE BAUMAN [address] [place] [address], [address], [facility] 4 15:41:25 Esophageal dysphagia 05529319 Active 2023 MOE BAUMAN [address] [place] [address], [address], [facility] 4 15:58:58 Lipoma of head and/or neck 196448460 Active 2023 MOE BAUMNA [address] [place] [address], [address], [facility] 4 16:00:52 Fatigue 98069760 Active 2024 MOE BAUMAN [address] [place] [address], [address], [facility] 5 09:41:00 Influenza caused by Influenza A virus 782530958 Active 2024 MOE BAUMAN [address] [place], [address], [facility] 5 09:42:03 Problem Notes None recorded. Procedures Surgical History None recorded. Imaging Results Imaging Date Name Status LastModified by Organiz ation Details LastModified Time 08/18/2021 US, abdominal wall completed [email or web address] Information not available 08/21/2021 09:30:12 08/16/2023 XR, sinuses, paranasal, 3 or more view completed [facility] Central Scheduling [address] [facility], [place], [address], 08/19/2023 14:00:13 Procedure Notes None recorded. Medical Equipment None Reported. [...] height Body mass index (BMI) Body weight Oxygen saturation Oxygen saturation in Arterial blood by Pulse oximetry Heart rate Systolic blood pressure Diastolic blood pressure Provider Name and Address Organization Details Last Updated DateTime 1 167.01 cm 26.7 kg/m2 83800.2 3 g 99 % 99 % 81 /min 112 mm[Hg] 68 mm[Hg] [facility] 1 14:19:22 Date Recorded Body height Body mass index (BMI) Body weight Heart rate Oxygen saturation Oxygen saturation in Arterial blood by Pulse oximetry Systolic blood pressure Diastolic blood pressure Provider Name and Address Organization Details Last Updated DateTime 2 167.01 cm 28.3 kg/m2 38228.3 5 g 75 /min 98 % 98 % 110 mm[Hg] 70 mm[Hg] MOE BAUMAN [address] [facility] [place], [address], [facility] 2 15:35:37 Date Recorded Body height Body mass index (BMI) Body weight Heart rate Oxygen saturation Oxygen saturation in Arterial blood by Pulse oximetry Systolic blood pressure Diastolic blood pressure Provider Name and Address Organization Details Last Updated DateTime 3 167.01 cm 29.2 kg/m2 47531.8 3 g 87 /min 95 % 95 % 102 mm[Hg] 70 mm[Hg] Jonna Kevin [facility] 3 15:43:23 Date Recorded Body height Body mass index (BMI) Body weight Heart rate Oxygen saturation Oxygen saturation in Arterial blood by Pulse oximetry Systolic blood pressure Diastolic blood pressure Provider Name and Address Organization Details Last Updated DateTime 4 167.01 cm 30 kg/m2 22154.7 9 g 79 /min 98 % 98 % 110 mm[Hg] 79 mm[Hg] Celenasonja Aldrich [facility] 4 15:36:54 Date Recorded Body height Body mass index (BMI) Body weight Heart rate Oxygen saturation Oxygen saturation in Arterial blood by Pulse oximetry Systolic blood pressure Diastolic blood pressure Provider Name and Address Organization Details Last Updated DateTime 5 167.01 cm 27 kg/m2 28204.9 7 g 84 /min 97 % 97 % 112 mm[Hg] 78 mm[Hg] Celenasonja Aldrich [facility] 5 09:24:08 Social History Question Answer Notes LastModified by Organizat ion Details LastModified Time Tobacco Smoking Status Never Smoker Not Available [facility] 08/26/2020 03:36:24 What Was The Date Of [...] mcg/0.3 mL dose 02/20/2021 completed Iesha cam [facility] 07/31/2021 09:23:33 COVID-19, mRNA, LNP-S, PF, 30 mcg/0.3 mL dose 03/13/2021 completed Iesha cam [facility] 07/31/2021 09:23:38 Past Encounters Encounter ID Performer Location Encounter Start Date Encounter Closed Date Diagnosis/Indication Diagnosis SNOMED-CT Code Diagnosis ICD10 Code Diagnosis Note [id number] January GAYLA Teague [facility] [address],[place] [address] 05/30/2018 13:21:37 05/30/2018 15:18:33 History of depression 788493650 Z86.59 seeing therapy Fatigue 59196685 R53.83 if lyme neg - will repeat in 2 weeks DDX: thyroid, anemia, lyme, viral prodrome, depression Pain of left wrist 23954 45001 03848 M25.532 likely residual pain from sprain conservati ve treatment here until labs reviewed - ice rest stretch, nsaids will review labs Pain of le ft shoulder joint 7534369758 9945557 M25.512 unclear etiology will await blood work again - conservati ve treatment here until labs reviewed - ice rest stretch, nsaids [id number] MOE BAUMAN [facility] [address],[place] [address] 07/31/2021 09:16:19 07/31/2021 10:44:25 Hernia of anterior abdominal wall 420533789 K43.9 will fu with US Lipoma of skin 365072293 D17.0 existing already on the neck [id number] MOE BAUMAN [facility] [address] [place] [address],[place] [address] 09/14/2021 14:11:25 09/14/2021 15:06:58 Fatigue 41421366 R53.83 will fu with lab work for increased fatigue and increase urinary Increased frequency of urination 306697361 R35.0 will check his urine [id number] MOE [facility]AN[facility] [address],[place] [address] 02/17/2022 15:30:06 02/17/2022 17:03:29 Active or passive immunization 884874852 Z23 advised Adult heal th examination 562712916 Z00.00 BP is excellent today Screening colonoscopy 44 3671758 Z12.11 will fu with GI for colonscopy given history of colon cancer [id number] MOE BAUMAN [facility] [address],[place] [address] 02/21/2023 15:28:13 02/21/2023 17:07:19 Active or passive immunization 751619105 Z23 advised Adult heal th examination 095673947 Z00.00 BP is excellent today Lipoma of skin 597842820 D17.0 existing already on the neck Eczema 31666850 L20.89 will start on topical when he needswill call Weight gain 9880158 R63. 5 will try melatonin and apple cider vinegar combinatio n Family his tory of cancer of colon 711151358 Z80.0 [id number] MOE BAUMAN [facility] [address],[place] [address] 02/24/2024 15:31:58 02/24/2024 16:38:39 Active or passive immunization 158195208 Z23 advised Adult heal th examination 052524509 Z00.00 BP is excellent today Depression screening 171 136248 Z13.31 stable Eczema 87144896 L20.89 will start on topical when he needswill call if not effective Diarrhea 93265979 A07.8 states he is going to the bathroom for a bowel movement 4 to 5 times per dayis solidno blood or mucusCT with gastro was negative, no abnormal findingsdi d have some benign cysts in his liver Family his tory of Alzheimer's disease 287222396 Z81.8 agreed to generic screening due to fam hx Esophageal dysphagia 408 75351 R13.19 will do lab work first and fu with pt Lipoma of head and/or neck 346528634 D17.0 willl fu with derm referral [id number] [facility] [address] [address] 11/27/2024 09:14:21 11/27/2024 10:25:17 Fatigue 45994586 R53.83 will check lab work Influenza caused by Influenza A virus 185957418 J09.X2 resolved Health Concerns Section Related Observation LastModified by Organization Detai ls LastModified Time None Recorded Concern Status LastModified by Organization Details LastModified Time None Recorded Advance Directives Directive None Recorded Payers Encounter Date Sequence Insurance Name Policy Number Policy Bowman Covered Member ID Bowman Member ID Guarantor Name 09/14/2021 1 [place] [facility] PRIOR TO 01/22/2023 - [facility] (MEDICAID) Caesar Ashley [id number] Caesar Ashley 02/17/2022 1 [facility] [id number] 1 Caesar Ashley [id number] Caesar H Dion 02/21/2023 1 [facility] [id number] 1 Caesar Francisca Dion [id number] Caesar Francisca Dion 02/24/2024 1 [facility] [id number] 1 Caesar H Dion [id number] Caesar Espinosa Dion 11/27/2024 1 [facility] [id number] 1 Caesar Espinosa Dion [id number] Caesar Espinosa Dion Notes Date Note Type Note Provider Name and Address Organization Details Recorded Time 1 text/html c/o ?BS issues the patient reports he is more fatigued during the afternoon and after eating heavy carbohydrate meals the patient reports that this has started four years agohis labs at that time were normal the patient reports that his diet is poor and he eat very carb heavy meals and take out the patient reports about once per day he is eating take out, about 3 to 4 times per week the patient does not drink alcohol the patient reports brain fog and fatigue in the afternoon the patient reports his sleep is goodthe patient reports he snores at night may need to do a sleep study to r/o sleep apnea if this is the case MOE BAUMAN [address] [facility], [place], [address], [facility] 09/14/2021 14:50:44 2 text/html Annual WellnessReported bypatient.Diet and Nutrition:healthy diet; discussed vitamin and supplement use; discussed portion control; discussed maintaining calcium balance; discussed diet improvement Fracture Risk:no history of fractures; no recent explained fracture; no sudden unexplained fractures; no previous musculoskeletal injuries Physical Activity:exercises on a regular basis; recent increase in physical activity; good physical condition; discussed weightbearing activities; discussed exercise habits; daily walks does hike once a week Additional Lifestyle Factors:no tobacco use; drinks alcohol (mild-moderate) (very seldom) Depression Risk:never feels sad, empty, or tearful; no loss of interest in activities; no significant changes in weight; no sleep disturbances or insomnia; no agitation; no loss of energy; no feelings of worthlessness or guilt; no thoughts of suicide; no history of depression; no history of mood disorders Hearing:no loss of hearing Vision:no vision problems; wears glasses MOE DENNY [address] [place], [address], [facility] 02/17/2022 15:55:17 3 text/html Annual WellnessReported bypatient.Diet and Nutrition:healthy diet; discussed vitamin and supplement use; discussed portion control; discussed maintaining calcium balance; discussed diet improvement; discussed Fracture Risk:no history of fractures; no recent explained fracture; no sudden unexplained fractures; no previous musculoskeletal injuries Physical Activity:exercises on a regular basis; recent increase in physical activity; good physical condition Additional Lifestyle Factors:no tobacco use; drinks alcohol (mild-moderate) Depression Risk:never feels sad, empty, or tearful; no loss of interest in activities; no significant changes in weight; no sleep disturbances or insomnia; no agitation; no loss of energy; no feelings of worthlessness or guilt; no thoughts of suicide; no history of depression; no history of mood disorders Hearing:no loss of hearing Vision:no vision problems eczema: around the neckcont lotions qd lipoma: around neck; would like removedwill set up with dermatology weight: discussed diet and supplements he could start discussed acne scars and acne > will also discuss with financial advocate MOE BAUMAN [address] [place] [address], [address], [facility] 02/21/2023 16:18:42 4 text/html Annual WellnessReported bypatient.Diet and Nutrition:healthy diet; discussed vitamin and supplement use; discussed portion control; discussed maintaining calcium balance; discussed diet improvement Fracture Risk:no history of fractures; no recent explained fracture; no sudden unexplained fractures; no previous musculoskeletal injuries Physical Activity:exercises on a regular basis; recent increase in physical activity; good physical condition Additional Lifestyle Factors:no tobacco use; stopped drinking alcohol; drinks alcohol (mild-moderate) Depression Risk:never feels sad, empty, or tearful; no loss of interest in activities; no significant changes in weight; no sleep disturbances or insomnia; no agitation; no loss of energy; no feelings of worthlessness or guilt; no thoughts of suicide; no history of depression; no history of mood disorders Hearing:no loss of hearing Vision:no vision problems; recently saw eye doctor, only uses it for drivingNotes:last dentist apt was a bit agodid recently see his seat pack inspector which everything looked good MOE BAUMAN [address] [place], [address], [facility] 02/24/2024 16:02:47 text/html c/o fatigue the patient reports that [...] or stooldenies flank pain MOE BAUMAN [address] [place], [address], [facility] 11/27/2024 09:48:31
== END 2024-12-12 07:44 | disposition home or self-care (01) ==
LOC: HO.US 07:43
PROVIDERS: PCP Physician Assistant; Visit Provider Nurse Practitioner Family
DX: D18.03 Hemangioma of intra-abdominal structures (principal)
CPT/HCPCS: 76705

== ENCOUNTER → 2024-12-12 07:45 | Outpatient (BNV) | payer OTHER, SELFPAY | PROVIDERS: PCP Physician Assistant; Visit Provider Radiology Diagnostic Radiology | DX: D18.03 Hemangioma of intra-abdominal structures (principal) | CPT/HCPCS: 76705 ==

== ENCOUNTER 2024-12-31 14:34 | Outpatient (AMB) | payer OTHER, SELFPAY ==
--- NOTE | 2024-12-31 15:02 | A.OFFVIS_ITS ---
Intake Visit Reasons: Enlarged Prostate Intake Note: New Patient presents for initial visit for hesitancy Urology Medications: none Blood Thinner: none PVR: 45ml's Field Contact Technician Required: No Accompanied by: Self / Same As Patient Allergies mold Allergy (Severe, Verified 12/31/24 16:18) Itching adhesive tape Allergy (Unknown, Verified 12/31/24 16:18) Rash Medication List - Last Reconciled 12/31/24 by SONY Armas No Known Home Meds HPI Comments Details: Caesar is a very pleasant 44-year-old male patient of Dr. Phillips. He presents to the office today as a new patient for a weak urinary stream. In discussion with the patient today he reports previously following up with a urologist in [facility] in August at which time recommendations were made for trial of alpha- leonardo however he never initiated this. He believes the medication was called tamsulosin. He reports noting weak urinary stream however feels this is manageable independently. In review of patient's chart it appears PSA 03/16 0.7 % free PSA 29%. We discussed at length potential causes of weak urinary stream. In office urinalysis results reviewed with the patient today. PVR 45 mL. He denies urinary urgency, urinary frequency, incontinence, nocturia, hematuria, dysuria, foul smelling urine, flank pain, fever, and or chills. He is happy with his current voiding parameters. We discussed obtaining retroperitoneal ultrasound for further assessment. We also discussed potential near future in office cystoscopy and or urodynamics for further assessment evaluation. He otherwise offers no other issues or concerns at this time. [facility] Family History Paternal Grandfather Colon cancer Social History Household Members: None Alcohol intake: current Alcohol intake frequency: a few times a month Patient Tobacco Use Status: Never used Tobacco e-Cigarette/Vaping Use: Never Used Review of Systems Const All systems reviewed & are unremarkable except as noted in HPI and below Physical Exam Const General: cooperative, healthy appearing, comfortable, no acute distress, well developed, alert and awake Orientation/consciousness: patient oriented x3 Limitations: no limitations HEENT Head: Yes normal to inspection, Yes normocephalic and Yes atraumatic Ears: hearing grossly normal bilaterally Eyes General: appearance normal, both eyes and all related structures Neck Neck: Yes normal visual inspection and Yes trachea midline Chest Chest palpation & inspection: normal inspection of the chest Resp Effort & Inspection: normal respiratory effort and able to speak in complete sentences Cardio Rate: regular rate GI Inspection: Yes normal to inspection General: Yes no CVA tenderness Back/Spine/Pelvis Back: no CVA tenderness Skin General skin exam: no rashes or lesions noted Neuro General: patient oriented x3 Extrem General: Yes normal to inspection Psych Appearance: grossly normal and well kempt Mental Status: mental status grossly normal Speech and movement: Normal speech and movement present and Clear speech present Affect: normal affect Attitude: cooperative Thought process: Normal thought process present Thought content: Normal thought content present Insight: Fair insight present (Psych) Judgement: Fair judgement present (Psych) Office Procedures Post Void Residual Post Residual Void Post Void Residual (PVR): 45 [id number] Void Residual by ultrasound Results AMB Urinalysis, Automated UA Leukoctes 0 Callie/uL Last Edit by [employer] on 12/31/24 15:29 UA Nitrite Negative Last Edit by [employer] on 12/31/24 15:29 UA Urobilinogen 0.2 mg/dL Last Edit by [employer] on 12/31/24 15:29 UA Protein 15 mg/dL Last Edit by [employer] on 12/31/24 15:29 UA pH 6.5 Last Edit by [employer] on 12/31/24 15:29 UA Blood 0 Jeffery/uL Last Edit by [employer] on 12/31/24 15:29 UA Specific Barling 1.015 Last Edit by [employer] on 12/31/24 15:29 UA Ketone Positive Last Edit by [employer] on 12/31/24 15:29 UA Bilirubin 0 mg/dL Last Edit by [employer] on 12/31/24 15:29 UA Glucose 0 mg/dL Last Edit by Maida Hammond on 12/31/24 15:29 Results Reviewed Results Reviewed: Laboratory Last Values Urine pH (Auto) 6.5 12/31/24 15:28 Specific Barling (Auto) 1.015 12/31/24 15:28 Urine Protein (Auto) 15 mg/dL 12/31/24 15:28 Glucose (UA)(Auto) 0 mg/dL 12/31/24 15:28 Urine Ketones (Auto) Positive 12/31/24 15:28 Urine Blood (Auto) 0 Jeffery/uL 12/31/24 15:28 Urine Nitrite (Auto) Negative 12/31/24 15:28 Urine Bilirubin (Auto) 0 mg/dL 12/31/24 15:28 Urine Urobilinogen (Auto) 0.2 mg/dL 12/31/24 15:28 Leukocyte Esterase (Auto) 0 Callie/uL 12/31/24 15:28 Assessment & Plan Assessment & Plan (1) Weak urinary stream: Code(s): R39.12 - Poor urinary stream Category: Medical (2) Enlarged prostate: Code(s): N40.0 - Benign prostatic hyperplasia without lower urinary tract symptoms Category: Medical Plan In office urinalysis results reviewed with the patient today; as noted above. PVR 45 mL. Recent PSA results reviewed with the patient today; as noted above. We discussed at length potential causes of weak urinary stream as well as further workup in risks and benefits of these interventions. Will obtain retroperitoneal ultrasound for further assessment evaluation. We discussed attempting to sit when voiding to relax pelvis/bladder. Follow-up in 3 months with imaging to be completed prior and PVR at next office visit; or sooner with any issues, concerns, and or questions. Orders: Orders AMB Urinalysis Automated Today Z13.9 - Encounter for screening, unspecified AMB Post Void Residual by ultrasound Today R39.11 - Hesitancy of micturition US retroperitoneal comp Today N40.0 - Benign prostatic hyperplasia without lower urinary tract symptoms, R39.12 - Poor urinary stream Patient Instructions: The patient had an opportunity to ask questions regarding the treatment plan. All questions were answered. Physical exam, labs, and imaging were discussed and reviewed in detail. As well as risks, benefits, and discussion of treatment choices. No major barriers to understanding were identified. The patient expressed understanding and agreement with the above treatment plan. The patient was made aware they should contact our office by phone for worsening of their current condition, the appearance of new symptoms, or with any questions or concerns. Compliance is encouraged with any medications and follow up testing that is ordered. It is a privilege to be allowed the opportunity to participate in? your urological care.? Again, if you have any questions or concerns If you have any questions or concerns please do not hesitate to contact me. The office is [phone]. This note is constructed using voice recognition software. While every effort has been made to ensure accuracy full time babysitter errors may have been included. Yours sincerely, VALERY Armas-LUIS ALBERTO Coding Level of Care Code New Pt Level 3 (23936) Diagnoses Weak urinary stream R39.12 Enlarged prostate N40.0 CPT Codes Post Residual Void - PVR CPT Code: 81309-Gerc Void Residual by ultrasound ([id number])
--- OUTSIDE RECORDS SUMMARY | 2024-12-31 16:40 | XMS_ITS | Data Portability ---
Demographics Address [address] [place] [address] Home Phone Mobile Phone Email Address Preferred Language en Marital Status Never Islam Affiliation Unknown Race White Ethnic Group Not or Lati no Author Organization [facility] Home Service Address [address] [facility] [place] [address] Assessment No assessment recorded. Plan of Treatment Reminders Order Date Submit Date Provider Last Modified By Organization Details Last Modified Time Details Appointments ANNUA L EXAM 2024 02:15P MOE EUBANKS Not available Not available Not available Lab iron + TIBC + ximena tin, serum 2024 025 rtryba [facility] (Centralized Electronic Ordering - All Locations), Patient Can Go To The Location Of Their Choice, 11/27/2024 09:46:11 CMP, serum or plasm a 2024 025 rtryba [facility] (Centralized Electronic Ordering - All Locations), Patient Can Go To The Location Of Their Choice, 11/27/2024 09:46:11 CBC w/ auto diff 2024 025 rtryba [facility] (Centralized Electronic Ordering - All Locations), Patient Can Go To The Location Of Their Choice, [id number] 11/27/2024 09:46:11 hemog lobin A1c, QN, blood 2024 025 rtryba [facility] (Centralized Electronic Ordering - All Locations), Patient Can Go To The Location Of Their Choice, 11/27/2024 09:46:11 testo stero ne, free + total , serum 2024 025 rtryba [facility] (Centralized Electronic Ordering - All Locations), Patient Can Go To The Location Of Their Choice, 11/27/2024 09:46:11 vitam in B12 + folat e, serum or blood 2024 025 rtryba [facility] (Centralized Electronic Ordering - All Locations), Patient Can Go To The Location Of Their Choice, 11/27/2024 09:46:11 vitam in D, 25-hy droxy , total , serum 2024 rtryba [facility] (Centralized Electronic Ordering - All Locations), Patient Can Go To The Location Of Their Choice, 11/27/2024 09:46:10 ESR (eryt hrocy te sedim entat ion rate) , blood 2024 rtryba [facility] (Centralized Electronic Ordering - All Locations), Patient Can Go To The Location Of Their Choice, 11/27/2024 09:46:11 C-karina ctive prote in, quant itati ve, serum or plasm a 2024 rtryba [facility] (Centralized Electronic Ordering - All Locations), Patient Can Go To The Location Of Their Choice, 11/27/2024 09:46:11 TSH + free T4, serum 2024 rtryba [facility] (Centralized Electronic Ordering - All Locations), Patient Can Go To The Location Of Their Choice, 11/27/2024 09:46:11 PTH (para thyro id hormo ne), intac t + calci um, serum or plasm a 2024 rtryba [facility] (Centralized Electronic Ordering - All Locations), Patient Can Go To The Location Of Their Choice, 11/27/2024 09:46:11 ESR (eryt hrocy te sedim entat ion rate) , blood 2023 [facility], [address] [place] [address], [place], [address], 02/24/2024 15:53:08 C-karina ctive prote in, quant itati ve, serum or plasm a 2023 [facility], [address] [place] [address], [place], [address], 02/24/2024 15:53:09 gamma -glut amyl trans feras e (ggt) , serum 2023 024 [facility], [address] [place] [address], [address], 02/24/2024 15:53:09 iron + TIBC + ximena tin, serum 2023 024 [facility], [address] [place] [address], [address], 03/19/2024 11:14:31 amyla se + lipas e, serum 2023 [facility], [address] [place] [address], [address], 02/24/2024 15:53:09 calpr otect in, stool 2023 024 [facility], [address] [place] [address], [address], 02/24/2024 15:53:08 CMP, serum or plasm a 2023 024 [facility], [address] [place] [address], [address], 02/24/2024 15:52:24 lipid panel , blood 2023 024 [facility], [address] [place] [address], [address], 02/24/2024 15:52:24 CBC w/ auto diff 2023 024 [facility], [address] [place] [address], [address], 02/24/2024 15:52:24 hemog lobin A1c, QN, blood 2023 024 [facility], [address] [place] [address], [place], [address], 02/24/2024 15:52:24 vitam in D, 25-hy droxy , total , serum 2023 024 [facility], [address] [place] [address], [place], [address], 05/23/2024 11:22:36 PSA, total + free, serum or plasm a 2023 024 [facility], [address] [place] [address], [address], 03/06/2024 11:23:24 CMP, serum or plasm a 2022 023 [facility], [address] [place] [address] [place], [address], 02/21/2023 16:51:39 lipid panel , blood 2022 023 [facility], [address] [place] [address] [place], [address], 02/21/2023 16:51:39 CBC w/ auto diff 2022 023 [facility], [address] [place] [address] [place], [address], 02/21/2023 16:51:38 PSA, serum or plasm a 2022 023 [facility], [address] [place] [address] [place], [address], 02/21/2023 16:51:39 CMP, serum or plasm a 2021 022 [facility], [address] [place] [address], [address], 02/17/2022 15:55:14 lipid panel , blood 2021 022 [facility], [address] [place] [address], [address], 02/17/2022 15:55:13 CBC w/ auto diff 2021 [facility], [address] [place] [address], [address], 02/23/2022 11:50:04 hemog lobin A1C/h emogl obin total , QN, blood 2020 [facility], [address] [place] [address], [address], 09/18/2021 10:57:38 cultu re, urine + sensi tivit y 2020 [facility], [address] [place] [address], [address], 09/15/2021 15:35:00 urina lysis , dipst ick 2020 [facility], [address] [facility], [address], [place], [address], 09/14/2021 14:59:57 vitam in D, 25-hy droxy , total , serum 2020 [facility], [address] [place] [address], [address], 09/18/2021 10:57:38 vitam in B12 + folat e, serum or blood 2020 [facility], [address] [place] [address], [address], 09/18/2021 10:57:38 CMP, serum or plasm a 2020 [facility], [address] [place] [address], [address], 09/14/2021 14:36:04 TSH + free T4, serum 2020 021 [facility], [address] [place] [address], [place], [address], 09/14/2021 14:36:04 CBC w/ diff 2020 021 [facility], [address] [place] [address], [place], [address], 09/18/2021 10:57:38 Referral gener al surge on refer ral 2023 024 [facility], [address], [place], [address], 02/27/2024 08:59:36 vadim ic couns elor refer ral 2023 024 [facility] Scheduling Dept, [address] [place], [address], 02/27/2024 08:59:35 derma tolog ist refer ral 2022 [email or web address] [place] [address] [facility], [address] , [place], [address], 02/23/2023 08:22:17 gastr jd reilly ist refer ral 2022 023 [email or web address] 10 [facility], [address] [place] [address] Dr, [facility], [place], [address], 02/23/2023 08:22:34 gastr jd reilly ist refer ral 2021 022 [facility], [address] [facility] [place], [address], 02/19/2022 09:46:03 Procedures None recor ded. Surgeries None recor ded. Imaging None recor ded. Medication Orders triam cinol one aceto nide 0.1 % topic al cream 2023 024 [facility] #[id number], [address] [facility], [place], [address], 02/24/2024 15:41:22 Patient TargetsNo targets recorded. Patient InstructionsNo instructions recorded. 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 Screening colonoscopy family history of colon cancer Referring Physician: Josette Phillips, Internal Medicine, Encounter Date: 02/17/2022 Radio Host Referral for L ipoma of skin lipoma of the neck causing discomfort and increasing in size Referring Physician: Josette Phillips [facility], Encounter Date: 02/21/2023 [employer] As[employer]er Referral for Family history of cancer of colon fam hx of colon cancer, needs screening Referring Physician: Josette Phillips [facility], Encounter Date: 02/21/2023 Genetic Counselor Referral f or Family history of Alzheimer's disease significant fam hx of alzheimer's, pancreatic cancer, brain tumors Referring Physician: Josette Phillips [facility], Encounter Date: 02/24/2024 General Surgeon Referral for Lipoma of head and/or neck lipoma of the neck, right side, getting bigger and irriating neck Referring Physician: Josette Phillips [facility], Encounter Date: 02/24/2024 Results Created Date Observation Date Name Description Value Unit Range Abnormal Flag Note LastModifiedBy Organization Detail LastModifiedTime 09/14/20 21 09/14/2021 urina lysis , dipst ick Leukocytes Negati ve Not Available [facility] [address] [facility] [address], [place], [address], 09/14/2021 14:40:30 09/14/20 21 09/14/2021 urina lysis , dipst ick Nitrite negati ve Not Available [facility] [address] [facility] [address], [place], [address], 09/14/2021 14:40:30 09/14/20 21 09/14/2021 urina lysis , dipst ick Urobilinogen .2 Not Available [facility] [address] [facility] [address], [place], [address], 09/14/2021 14:40:30 09/14/20 21 09/14/2021 urina lysis , dipst ick Protein Negati ve Not Available [facility] [address] [facility] [address], [place], [address], 09/14/2021 14:40:30 09/14/20 21 09/14/2021 urina lysis , dipst ick pH 6.0 Not Available [facility] [address] [facility] [address], [place], [address], 09/14/2021 14:40:30 09/14/20 21 09/14/2021 urina lysis , dipst ick Blood Negati ve Not Available [facility] [address] [facility] [address], [place], [address], 09/14/2021 14:40:30 09/14/20 21 09/14/2021 urina lysis , dipst ick Specific [place] 1.015 Not Available [facility] [address], [place], [address], 09/14/2021 14:40:30 09/14/20 21 09/14/2021 urina lysis , dipst ick Ketone Negati ve Not Available [facility] [address] [facility] [address], [place], [address], 09/14/2021 14:40:30 09/14/20 21 09/14/2021 urina lysis , dipst ick Bilirubin Negati ve Not Available [facility] [address] [facility] [address], [place], [address], 09/14/2021 14:40:30 09/14/20 21 09/14/2021 urina lysis , dipst ick Glucose Negati ve Not Available [facility] [address] [facility] [address], [place], [address], 09/14/2021 14:40:30 09/14/20 21 09/14/2021 urina lysis , dipst ick Appearance Clear Not Available [facility] [address] [facility] [address], [place], [address], 09/14/2021 14:40:30 09/14/20 21 09/14/2021 urina lysis , dipst ick Color Pale Yellow Not Available [facility] [address] [facility] [address], [place], [address], 09/14/2021 14:40:30 08/20/20 21 08/18/2021 US, abdom inal wall No observ ation record ed. [email or web address] Not Available 2020 09:30:12 08/18/20 23 08/16/2023 XR, sinus es, paran gifty, 3 or more view No observ ation record ed. [email or web address] [facility] Central Scheduling [address] [place], [address], 08/19/2023 14:00:13 12/12/19 25 12/12/2024 US, abdom en No observ ation record ed. rtba [facility] (Medical Records) [address] [place], [address], 12/13/2024 12:02:42 Result Notes None recorded. Problems Name Problem SNOMED Code Status Onset Date Resolution Date Notes Provider Name and Address Organization Details Recorded Time History of depression 051497381 Active 2017 Chelsea cam [facility] 8 12:22:54 Lipoma of skin 925920989 Active 2022 MOE BAUMAN [address] [place] [address], [address], [facility] 3 15:52:18 Eczema 35556663 Active 2022 MOE BAUMAN [address] [place] [address], [address], [facility] 3 15:56:40 Weight gain 8025177 Active 2022 MOE BAUMAN [address] [place], [address], [facility] 3 15:58:06 Atypical facial pain 88548234 Active 2022 MOE BAUMAN [address] [place], [address], [facility] 3 10:31:19 Diarrhea 03300319 Active 2023 MOE BAUMAN [address] [place] [address], [address], [facility] 4 15:41:25 Esophageal dysphagia 77397884 Active 2023 MOE BAUMAN [address] [place] [address], [address], [facility] 4 15:58:58 Lipoma of head and/or neck 948466155 Active 2023 MOE BAUMAN [address] [place] [address], [address], [facility] 4 16:00:52 Fatigue 12855103 Active 2024 MOE BAUMAN [address] [place], [address], [facility] 5 09:41:00 Influenza caused by Influenza A virus 513395161 Active 2024 MOE BAUMAN [address] [place], [address], [facility] 5 09:42:03 Problem Notes None recorded. Procedures Surgical History None recorded. Imaging Results Imaging Date Name Status LastModified by Organiz ation Details LastModified Time 08/18/2021 US, abdominal wall completed [email or web address] Information not available 08/21/2021 09:30:12 08/16/2023 XR, sinuses, paranasal, 3 or more view [email or web address] Central Scheduling [address] [place], [address], 08/19/2023 14:00:13 12/12/2024 US, abdomen completed [email or web address] [facility] (Medical Records) [address] [place], [address], 12/13/2024 12:02:42 Procedure Notes None recorded. Medical Equipment None [...] Updated DateTime 1 167.01 cm 26.7 kg/m2 11624.2 3 g 99 % 99 % 81 /min 112 mm[Hg] 68 mm[Hg] Rashmi Farrell [facility] 1 14:19:22 Date Recorded Body height Body mass index (BMI) Body weight Heart rate Oxygen saturation Oxygen saturation in Arterial blood by Pulse oximetry Systolic blood pressure Diastolic blood pressure Provider Name and Address Organization Details Last Updated DateTime 2 167.01 cm 28.3 kg/m2 44009.3 5 g 75 /min 98 % 98 % 110 mm[Hg] 70 mm[Hg] MOE BAUMAN [address] [place], [address] [place] [address] Internal Medicine 2 15:35:37 Date Recorded Body height Body mass index (BMI) Body weight Heart rate Oxygen saturation Oxygen saturation in Arterial blood by Pulse oximetry Systolic blood pressure Diastolic blood pressure Provider Name and Address Organization Details Last Updated DateTime 3 167.01 cm 29.2 kg/m2 41327.8 3 g 87 /min 95 % 95 % 102 mm[Hg] 70 mm[Hg] Jonna Brown [facility] 3 15:43:23 Date Recorded Body height Body mass index (BMI) Body weight Heart rate Oxygen saturation Oxygen saturation in Arterial blood by Pulse oximetry Systolic blood pressure Diastolic blood pressure Provider Name and Address Organization Details Last Updated DateTime 4 167.01 cm 30 kg/m2 93888.7 9 g 79 /min 98 % 98 % 110 mm[Hg] 79 mm[Hg] Celena Aldrich [facility] 4 15:36:54 Date Recorded Body height Body mass index (BMI) Body weight Heart rate Oxygen saturation Oxygen saturation in Arterial blood by Pulse oximetry Systolic blood pressure Diastolic blood pressure Provider Name and Address Organization Details Last Updated DateTime 5 167.01 cm 27 kg/m2 95849.9 7 g 84 /min 97 % 97 % 112 mm[Hg] 78 mm[Hg] Celena Aldrich [facility] 5 09:24:08 Social History Question Answer Notes LastModified by Organizat ion Details LastModified Time Tobacco Smoking Status Never Smoker Not Available [facility] 08/26/2020 03:36:24 What Was The Date Of [...] mcg/0.3 mL dose 02/20/2021 completed Iesha cam [facility] 07/31/2021 09:23:33 COVID-19, mRNA, LNP-S, PF, 30 mcg/0.3 mL dose 03/13/2021 completed Iesha cam [facility] 07/31/2021 09:23:38 Past Encounters Encounter ID Performer Location Encounter Start Date Encounter Closed Date Diagnosis/Indication Diagnosis SNOMED-CT Code Diagnosis ICD10 Code Diagnosis Note [id number] January GAYLA Teague [facility] [address] [facility] [address] 05/30/2018 13:21:37 05/30/2018 15:18:33 History of depression 388370157 Z86.59 seeing therapy Fatigue 48775397 R53.83 if lyme neg - will repeat in 2 weeks DDX: thyroid, anemia, lyme, viral prodrome, depression Pain of left wrist 14143 77836 56734 M25.532 likely residual pain from sprain conservati ve treatment here until labs reviewed - ice rest stretch, nsaids will review labs Pain of le ft shoulder joint 3877664418 0935585 M25.512 unclear etiology will await blood work again - conservati ve treatment here until labs reviewed - ice rest stretch, nsaids [id number] MOE BAUMAN [facility] [address] [facility] [address] 07/31/2021 09:16:19 07/31/2021 10:44:25 Hernia of anterior abdominal wall 727428406 K43.9 will fu with US Lipoma of skin 844680957 D17.0 existing already on the neck [id number] MOE BAUMAN [facility] [address] [facility] [place] [address] 09/14/2021 14:11:25 09/14/2021 15:06:58 Fatigue 49245389 R53.83 will fu with lab work for increased fatigue and increase urinary Increased frequency of urination 528804731 R35.0 will check his urine [id number] MOE BAUMAN [facility] [address] [facility],[place] [address] 02/17/2022 15:30:06 02/17/2022 17:03:29 Active or passive immunization 134377728 Z23 advised Adult [facility] examination 868667565 Z00.00 BP is excellent today Screening colonoscopy 44 6642964 Z12.11 will fu with GI for colonscopy given history of colon cancer [id number] MOE BAUMAN [facility] [address] [facility],[place] [address] 02/21/2023 15:28:13 02/21/2023 17:07:19 Active or passive immunization 826672369 Z23 advised Adult [facility] examination 384928739 Z00.00 BP is excellent today Lipoma of skin 526695424 D17.0 existing already on the neck Eczema 29626780 L20.89 will start on topical when he needswill call Weight gain 2455633 R63. 5 will try melatonin and apple cider vinegar combinatio n Family his tory of cancer of colon 605778317 Z80.0 [id number] MOE BAUMAN [facility] [address] [facility],[place] [address] 02/24/2024 15:31:58 02/24/2024 16:38:39 Active or passive immunization 353252586 Z23 advised Adult heal examination 931333525 Z00.00 BP is excellent today Depression screening 171 124250 Z13.31 stable Eczema 97287709 L20.89 will start on topical when he needswill call if not effective Diarrhea 29271067 A07.8 states he is going to the bathroom for a bowel movement 4 to 5 times per dayis solidno blood or mucusCT with gastro was negative, no abnormal findingsdi d have some benign cysts in his liver Family his tory of Alzheimer's disease 064286991 Z81.8 agreed to generic screening due to fam hx Esophageal dysphagia 408 15835 R13.19 will do lab work first and fu with pt Lipoma of head and/or neck 744881234 D17.0 willl fu with derm referral [id number] MOE BAUMAN [facility] [address] [facility] [address] 11/27/2024 09:14:21 11/27/2024 10:25:17 Fatigue 34031545 R53.83 will check lab work Influenza caused by Influenza A virus 814424543 J09.X2 resolved Health Concerns Section Related Observation LastModified by Organization Detai ls LastModified Time None Recorded Concern Status LastModified by Organization Details LastModified Time None Recorded Advance Directives Directive None Recorded Payers Encounter Date Sequence Insurance Name Policy Number Policy Bowman Covered Member ID Bowman Member ID Guarantor Name 09/14/2021 1 MEDICAID-[facility] PRIOR TO 01/22/2023 - [facility] (MEDICAID) Caesar Ashley [id number] Caesar Ashley 02/17/2022 1 [facility] [id number] 1 Caesar Ashley [id number] Caesar Ashley 02/21/2023 1 [facility] [id number] 1 Caesar Ashley [id number] Caesar Ashley 02/24/2024 1 [facility] [id number] 1 Caesar Ashley [id number] Caesar Francisca Dion 11/27/2024 1 [facility] [id number] 1 Caesar H Dion [id number] Caesar Francisca Dion Notes Date Note Type Note Provider [...] this is the case MOE BAUMAN [address] [facility] [id number] [place] [address] Internal Medicine 09/14/2021 14:50:44 2 text/html Annual [...] of hearing Vision:no vision problems; wears glasses PRMOE PALOMO [address] [place] [address], [address] 02/17/2022 15:55:17 3 text/html Annual [...] and acne > will also discuss with technical writer and editor MOE BAUMAN [address] [place], [address], [facility] 02/21/2023 16:18:42 4 text/html Annual [...] was a bit agodid recently see his economics consultant which everything looked good MOE BAUMAN [address] [place], [address], [facility] 02/24/2024 16:02:47 5 text/html c/o fatigue the patient reports [...] or stooldenies flank pain MOE BAUMAN [address] [place], [address], [facility] 11/27/2024 09:48:31
== END 2024-12-31 15:46 | disposition home or self-care (01) ==
PROVIDERS: PCP Physician Assistant; Visit Provider Nurse Practitioner Family
DX: R39.12 Poor urinary stream (principal); N40.0 Benign prostatic hyperplasia without lower urinary tract symptoms; Z13.9 Encounter for screening, unspecified
CPT/HCPCS: 99203

== ENCOUNTER → 2024-12-31 14:34 | Outpatient (BNVA) | payer OTHER, SELFPAY | PROVIDERS: PCP Physician Assistant; Visit Provider Nurse Practitioner Family | DX: N40.1 Benign prostatic hyperplasia with lower urinary tract symptoms (principal); R39.12 Poor urinary stream; R39.11 Hesitancy of micturition | CPT/HCPCS: 51798; 81003 ==

== ENCOUNTER 2025-03-19 08:47 | Outpatient (REF) | payer OTHER, SELFPAY ==
--- NOTE | ~2025-03-19 | US_ITS ---
CLINICAL HISTORY: N40.0 - Benign prostatic hyperplasia without lower urinary tract symptoms Retroperitoneal ultrasound Comparison: None Findings: The kidneys are normal in echotexture bilaterally. No hydronephrosis. The right kidney is normal in size, measuring 10.7cm in length. The left kidney is normal in size, measuring 11.2cm in length. The urinary bladder is unremarkable. Prevoid volume 272.6 mL. Postvoid volume 41.4 mL. Ureteral jets are visualized bilaterally. The prostate is normal in size, measuring 4.1 x 3.3 x 2.9cm, volume of 20.6 mL. Impression: Normal retroperitoneal ultrasound. This document has been electronically signed by: Joanne Cobb MD on 03/19/2025 15:21:49
--- OUTSIDE RECORDS SUMMARY | 2025-03-19 09:07 | XMS_ITS | Data Portability ---
Demographics Address [address] [place] [address] Home Phone Mobile Phone Email Address Preferred Language en Marital Status Never Methodist Affiliation Unknown Race White Ethnic Group Not or Lati no Author Organization [facility] Service Address [address] [place] [address] Assessment No assessment recorded. Plan of Treatment [...] Go To The Location Of Their Choice, [id number] 11/27/2024 09:46:11 hemog lobin A1c, QN, blood [...] sedim entat ion rate) , blood 2023 [facility], [address] [place] [address], [place], [address], 02/24/2024 15:53:08 C-karina ctive prote in, quant itati ve, serum or plasm a 2023 [facility], [address] [place] [address], [place], [address], 02/24/2024 15:53:09 gamma -glut amyl trans feras e (ggt) , serum 2023 024 [facility], [address] [place] [address], [address], 02/24/2024 15:53:09 iron + TIBC + ximena tin, serum 2023 024 [facility], [address] [place] [address], [address], 03/19/2024 11:14:31 amyla se + lipas e, serum 2023 [facility], [address] [place] [address], [address], 02/24/2024 15:53:09 calpr otect in, stool 2023 024 [facility], [address] [place] [address], [address], 02/24/2024 15:53:08 CMP, serum or plasm a 2023 024 [facility], [address] [place] [address], [address], 02/24/2024 15:52:24 lipid panel , blood 2023 024 [facility], [address] [place] [address], [address], 02/24/2024 15:52:24 CBC w/ auto diff 2023 024 [facility], [address] [place] [address], [address], 02/24/2024 15:52:24 hemog lobin A1c, QN, blood 2023 024 [facility], [address] [place] [address], [place], [address], 02/24/2024 15:52:24 vitam in D, 25-hy droxy , total , serum 2023 024 [facility], [address] [place] [address], [place], [address], 05/23/2024 11:22:36 PSA, total + free, serum or plasm a 2023 024 [facility], [address] [place] [address], [address], 03/06/2024 11:23:24 CMP, serum or plasm a 2022 023 [facility], [address] [place] [address] [place], [address], 02/21/2023 16:51:39 lipid panel , blood 2022 023 [facility], [address] [place] [address] [place], [address], 02/21/2023 16:51:39 CBC w/ auto diff 2022 023 [facility], [address] [place] [address] [place], [address], 02/21/2023 16:51:38 PSA, serum or plasm a 2022 023 [facility], [address] [place] [address] [place], [address], 02/21/2023 16:51:39 CMP, serum or plasm a 2021 022 [facility], [address] [place] [address], [address], 02/17/2022 15:55:14 lipid panel , blood 2021 022 [facility], [address] [place] [address], [address], 02/17/2022 15:55:13 CBC w/ auto diff 2021 [facility], [address] [place] [address], [address], 02/23/2022 11:50:04 hemog lobin A1C/h emogl obin total , QN, blood 2020 [facility], [address] [place] [address], [address], 09/18/2021 10:57:38 cultu re, urine + sensi tivit y 2020 [facility], [address] [place] [address], [address], 09/15/2021 15:35:00 urina lysis , dipst ick 2020 [facility], [address], [address], [place], [address], 09/14/2021 14:59:57 vitam in D, 25-hy droxy , total , serum 2020 [facility], [address] [place] [address], [address], 09/18/2021 10:57:38 vitam in B12 + folat e, serum or blood 2020 [facility], [address] [place] [address], [address], 09/18/2021 10:57:38 CMP, serum or plasm a 2020 [facility], [address] [place] [address], [address], 09/14/2021 14:36:04 TSH + free T4, serum 2020 021 [facility], [address] [place] [address], [place], [address], 09/14/2021 14:36:04 CBC w/ diff 2020 021 [facility], [address] [place] [address], [place], [address], 09/18/2021 10:57:38 Referral gener al surge on refer ral 2023 024 [facility], [address], [place], [address], 02/27/2024 08:59:36 vadim ic couns elor refer ral 2023 024 [facility], [address] [place], [address], 02/27/2024 08:59:35 derma tolog ist refer ral 2022 [email or web address] [place] [address] [facility], [address] , [place], [address], 02/23/2023 08:22:17 gastr jd reilly ist refer ral 2022 023 [email or web address] 10 [facility], [address] [place] [address] Dr, [facility], [place], [address], 02/23/2023 08:22:34 gastr jd reilly ist refer ral 2021 022 [facility], [address] [facility] [place], [address], 02/19/2022 09:46:03 Procedures None recor ded. Surgeries None recor ded. Imaging None recor ded. Medication Orders triam cinol one aceto nide 0.1 % topic al cream 2023 024 [id number], [address] [facility], [place], [address], 02/24/2024 15:41:22 Patient TargetsNo targets recorded. Patient InstructionsNo instructions recorded. Reason for Referral Pool Attendant Referral for Screening colonoscopy family history of colon cancer Referring Physician: Josette Phillips, Internal Medicine, Encounter Date: 02/17/2022 Budder Referral for L ipoma of skin lipoma of the neck causing discomfort and increasing in size Referring Physician: Josette Phillips [facility], Encounter Date: 02/21/2023 Pool Attendant Referral for Family history of cancer of [...] dipst ick Leukocytes Negati ve Not Available [facility] [address], [place], [address], 09/14/2021 14:40:30 09/14/20 21 09/14/2021 urina lysis , dipst ick Nitrite negati ve Not Available [facility] [address], [place], [address], 09/14/2021 14:40:30 09/14/20 21 09/14/2021 urina lysis , dipst ick Urobilinogen .2 Not Available [facility] [address], [place], [address], 09/14/2021 14:40:30 09/14/20 21 09/14/2021 urina lysis , dipst ick Protein Negati ve Not Available [facility] [address] [facility] [address], [place], [address], 09/14/2021 14:40:30 09/14/20 21 09/14/2021 urina lysis , dipst ick pH 6.[address] [facility] [address], [place], [address], 09/14/2021 14:40:30 09/14/20 21 09/14/2021 urina lysis , dipst ick Blood Negati ve Not Available [facility] [address], [place], [address], 09/14/2021 14:40:30 09/14/20 21 09/14/2021 urina lysis , dipst ick Specific Glen 1.015 Not Available [facility] [address], [place], [address], 09/14/2021 14:40:30 09/14/20 21 09/14/2021 urina lysis , dipst ick Ketone Negati ve Not Available [facility] [address], [place], [address], 09/14/2021 14:40:30 09/14/20 21 09/14/2021 urina lysis , dipst ick Bilirubin Negati ve Not Available [facility] [address], [place], [address], 09/14/2021 14:40:30 09/14/20 21 09/14/2021 urina lysis , dipst ick Glucose Negati ve Not Available [facility] [address], [place], [address], 09/14/2021 14:40:30 09/14/20 21 09/14/2021 urina lysis , dipst ick Appearance Clear Not Available [facility] [address], [place], [address], 09/14/2021 14:40:30 09/14/20 21 09/14/2021 urina lysis , dipst ick Color Pale Yellow Not Available [facility] [address], [place], [address], 09/14/2021 14:40:30 08/20/20 21 08/18/2021 US, abdom inal wall No observ ation record ed. [email or web address] Not Available 2020 09:30:12 08/18/20 23 08/16/2023 XR, sinus es, paran gifty, 3 or more view No observ ation record ed. [email or web address] [facility] [address] [place], [address], 08/19/2023 14:00:13 12/12/19 25 12/12/2024 US, abdom en No observ ation record ed. [email or web address] [facility] (Medical Records) [address] [place], [address], 12/13/2024 12:02:42 Result Notes None recorded. Problems Name Problem SNOMED Code Status Onset Date Resolution Date Notes Provider Name and Address Organization Details Recorded Time History of depression 924858815 Active 2017 Chelsea cam [facility] 8 12:22:54 Lipoma of skin 833224319 Active 2022 MOE BAUMAN [address] [place] [address], [address], [facility] 3 15:52:18 Eczema 85790912 Active 2022 MOE BAUMAN [address] [place] [address], [address], [facility] 3 15:56:40 Weight gain 1871846 Active 2022 MOE BAUMAN [address] [place] [address], [address], [facility] 3 15:58:06 Atypical facial pain 50439144 Active 2022 MOE BAUMAN [address] [place] [address], [address], [facility] 3 10:31:19 Diarrhea 68974252 Active 2023 MOE BAUMAN [address] [place] [address], [address], [facility] 4 15:41:25 Esophageal dysphagia 96977564 Active 2023 MOE BAUMAN [address] [place] [address], [address], [facility] 4 15:58:58 Lipoma of head and/or neck 350079692 Active 2023 MOE BAUMAN [address] [place] [address], [address], [facility] Internal [facility] 4 16:00:52 Fatigue 97612644 Active 2024 MOE BAUMAN [address] [place] [address], [address], [facility] 5 09:41:00 Influenza caused by Influenza A virus 842313499 Active 2024 MOE BAUMAN [address] [place] [address], [address], [facility] 5 09:42:03 Problem Notes None [...] in Arterial blood by Pulse oximetry Systolic And Diastolic Provider Name and Address Organization Details Last Updated DateTime 5 167.01 cm 27 kg/m2 75228.9 7 g 84 /min 97 % 97 % 112/78 mm[Hg] Celena Aldrich [facility] 5 09:24:08 Date Recorded Body height Body mass index (BMI) Body weight Heart rate Oxygen saturation Oxygen saturation in Arterial blood by Pulse oximetry Systolic And Diastolic Provider Name and Address Organization Details Last Updated DateTime 2 167.01 cm 28.3 kg/m2 90353.3 5 g 75 /min 98 % 98 % 110/70 mm[Hg] MOE BAUMAN [address] [place], [address] [place] [address] Internal Medicine 2 15:35:37 Date Recorded Body height Body mass index (BMI) Body weight Heart rate Oxygen saturation Oxygen saturation in Arterial blood by Pulse oximetry Systolic And Diastolic Provider Name and Address Organization Details Last Updated DateTime 3 167.01 cm 29.2 kg/m2 08436.8 3 g 87 /min 95 % 95 % 102/70 mm[Hg] Jonna Brown [facility] 3 15:43:23 Date Recorded Body height Body mass index (BMI) Body weight Heart rate Oxygen saturation Oxygen saturation in Arterial blood by Pulse oximetry Systolic And Diastolic Provider Name and Address Organization Details Last Updated DateTime 4 167.01 cm 30 kg/m2 68761.7 9 g 79 /min 98 % 98 % 110/79 mm[Hg] Celena Aldrich [facility] 4 15:36:54 Date Recorded Body height Body mass index (BMI) Body weight Oxygen saturation Oxygen saturation in Arterial blood by Pulse oximetry Heart rate Systolic And Diastolic Provider Name and Address Organization Details Last Updated DateTime 1 167.01 cm 26.7 kg/m2 70281.2 3 g 99 % 99 % 81 /min 112/68 mm[Hg] Rashmi Farrell [facility] 1 14:19:22 Social History Question Answer Notes LastModified by Organizat ion Details LastModified Time Tobacco Smoking Status Never Smoker Not Available [facility] 08/26/2020 03:36:24 What Was The Date Of Your Most Recent Tobacco Screening? 11/27/2024 [email or web address] Information not available 11/27/2024 Sex: Unknown Functional Status Question Answer Note LastModified by Organization D etails LastModified Time Do you or have you ever used any other forms of tobacco or nicotine? No [email or web address] Information not available 02/21/2023 Mental Status None recorded. Family History Relationship [...] mcg/0.3 mL dose 02/20/2021 completed Iesha cam [facility] 07/31/2021 09:23:33 COVID-19, mRNA, LNP-S, PF, 30 mcg/0.3 mL dose 03/13/2021 completed Iesha cam [facility] 07/31/2021 09:23:38 Past Encounters Encounter ID Performer Location Encounter Start Date Encounter Closed Date Diagnosis/Indication Diagnosis SNOMED-CT Code Diagnosis ICD10 Code Diagnosis Note [id number] DO Shannon [facility] [address] [facility],[place] [address] 05/30/2018 13:21:37 05/30/2018 15:18:33 History of depression 051296466 Z86.59 seeing therapy Fatigue 01524787 R53.83 if lyme neg - will repeat in 2 weeks DDX: thyroid, anemia, lyme, viral prodrome, depression Pain of left wrist 81166 40525 66198 M25.532 likely residual pain from sprain conservati ve treatment here until labs reviewed - ice rest stretch, nsaids will review labs Pain of le ft shoulder joint 8607628828 6948347 M25.512 unclear etiology will await blood work again - conservati ve treatment here until labs reviewed - ice rest stretch, nsaids [id number] Harsh [facility] [address] [place] [address],[place] [address] 07/31/2021 09:16:19 07/31/2021 10:44:25 Hernia of anterior abdominal wall 832913504 K43.9 will fu with US Lipoma of skin 399629218 D17.0 existing already on the neck [id number] Harsh [facility] [address],[place] [address] 09/14/2021 14:11:25 09/14/2021 15:06:58 Fatigue 60775677 R53.83 will fu with lab work for increased fatigue and increase urinary Increased frequency of urination 336153438 R35.0 will check his urine [id number] Harsh [facility] [address] [place] [address],[place] [address] 02/17/2022 15:30:06 02/17/2022 17:03:29 Active or passive immunization 416469175 Z23 advised Adult heal th examination 133133389 Z00.00 BP is excellent today Screening colonoscopy 44 4987554 Z12.11 will fu with GI for colonscopy given history of colon cancer [id number] Harsh [facility] [address] [place] [address],[place] [address] 02/21/2023 15:28:13 02/21/2023 17:07:19 Active or passive immunization 907575699 Z23 advised Adult heal th examination 117403990 Z00.00 BP is excellent today Lipoma of skin 043162764 D17.0 existing already on the neck Eczema 31606127 L20.89 will start on topical when he needswill call Weight gain 8944903 R63. 5 will try melatonin and apple cider vinegar combinatio n Family his tory of cancer of colon 938197940 Z80.0 [id number] Harsh [facility] [address] [facility], [facility] [place] [address] 02/24/2024 15:31:58 02/24/2024 16:38:39 Active or passive immunization 648323588 Z23 advised Adult heal th examination 029016706 Z00.00 BP is excellent today Depression screening 171 470787 Z13.31 stable Eczema 18636161 L20.89 will start on topical when he needswill call if not effective Diarrhea 71158129 A07.8 states he is going to the bathroom for a bowel movement 4 to 5 times per dayis solidno blood or mucusCT with gastro was negative, no abnormal findingsdi d have some benign cysts in his liver Family his tory of Alzheimer's disease 665153582 Z81.8 agreed to generic screening due to fam hx Esophageal dysphagia 408 [address]889 R13.19 will do lab work first and fu with pt Lipoma of head and/or neck 163286423 D17.0 willl fu with derm referral [id number] Harsh [facility] [address] [facility], [place] [address] 11/27/2024 09:14:21 11/27/2024 10:25:17 Fatigue 73308151 R53.83 will check lab work Influenza caused by Influenza A virus 956798154 J09.X2 resolved Health Concerns Section Related Observation LastModified by Organization Detai ls LastModified Time None Recorded Concern Status LastModified by Organization Details LastModified Time None Recorded Advance Directives Directive None Recorded Payers Encounter Date Sequence Insurance Name Policy Number Policy Bowman Covered Member ID Bowman Member ID Guarantor Name 09/14/2021 1 [facility]ICAID-[facility] PRIOR TO 01/22/2023 - [facility] (MEDICAID) Caesar Ashley [id number] Caesar Ashley 02/17/2022 1 [facility] [id number] 1 Caesar Ashley [id number] Caesar Ashley 02/21/2023 1 [facility] [id number] 1 Caesar Ashley [id number] Caesar Espinosa Dion 02/24/2024 1 [facility] [id number] 1 Caesar Ashley [id number] Caesar Ashley 11/27/2024 1 [facility] [id number] 1 Caesar Ashley [id number] Caesar Ashley Notes Date Note Type Note [...] if this is the case MOE BAUMAN [address] [place] [address], [address], [facility] 09/14/2021 14:50:44 2 text/html Annual [...] of hearing Vision:no vision problems; wears glasses PRN MOE BAUMAN [address] [place], [address], [facility] 02/17/2022 15:55:17 3 text/html Annual [...] and acne > will also discuss with delivery table operator MOE BAUMAN [address] [place], [address], [facility] 02/21/2023 16:18:42 4 text/html Annual [...] was a bit agodid recently 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
== END 2025-03-19 08:48 | disposition home or self-care (01) ==
LOC: HO.US 08:47
PROVIDERS: PCP Physician Assistant; Visit Provider Nurse Practitioner Family
DX: N40.0 Benign prostatic hyperplasia without lower urinary tract symptoms (principal); R39.12 Poor urinary stream
CPT/HCPCS: 76770

== ENCOUNTER → 2025-03-19 08:49 | Outpatient (BNV) | payer OTHER, SELFPAY | PROVIDERS: PCP Physician Assistant; Visit Provider Radiology Diagnostic Radiology | DX: N40.0 Benign prostatic hyperplasia without lower urinary tract symptoms (principal) | CPT/HCPCS: 76770 ==

== ENCOUNTER 2025-04-03 09:26 | Outpatient (AMB) | payer OTHER, SELFPAY ==
--- NOTE | 2025-04-03 09:29 | A.OFFVIS_ITS ---
Intake Visit Reasons: 3m/US Intake Note: Patient presents to office today or 3m/US * Imagin03/19/25 Urology Medications: none Blood Thinner: none PVR: 0ml Health Services Director Required: No Accompanied by: Self / Same As Patient Allergies mold Allergy (Severe, Verified 04/03/25 09:48) Itching adhesive tape Allergy (Unknown, Verified 04/03/25 09:48) Rash Medication List - Last Reconciled 04/03/25 by MISTY Armas cranberry 500 mg PO BID HPI Comments Details: Caesar is a very pleasant 44-year-old male patient of Dr. Phillips. He presents to the office today for follow-up. Of note, patient was seen approximately 3 months ago as a new patient for a weak urinary stream at which time a retroperitoneal ultrasound was ordered for further assessment evaluation. These results were reviewed and communicated with the patient today. 03/17 bilateral kidneys are normal in echotexture bilaterally. No hydronephrosis noted bilaterally. The urinary bladder is unremarkable. Prostate measures 20.6 mL. In office urinalysis results reviewed with the patient today. PVR 0 mL. We did discussed further treatment options of weak urinary stream to include in office cystoscopy for further assessment evaluation as well as trial of alpha-leonardo. However, in discussion with the patient today he would like to continue with surveillance monitoring and lifestyle modifications at this time. He does have a history of previously following up with a urologist in [facility] in recommendations were made for trial of alpha-leonardo. PSA 03/16 0.7 % free PSA 29%. We discussed potential causes of weak urinary stream. He denies urinary urgency, urinary frequency, incontinence, nocturia, hematuria, dysuria, foul smelling urine, flank pain, fever, and or chills. He is happy with his current voiding parameters. He otherwise offers no other issues or concerns at this time. PFSH Family History Paternal Grandfather Colon cancer Social History Household Members: None Alcohol intake: current Alcohol intake frequency: a few times a month Patient Tobacco Use Status: Never used Tobacco e-Cigarette/Vaping Use: Never Used Review of Systems Const All systems reviewed & are unremarkable except as noted in HPI and below Physical Exam Const General: cooperative, healthy appearing, comfortable, no acute distress, well developed, alert and awake Orientation/consciousness: patient oriented x3 Limitations: no limitations HEENT Head: Yes normal to inspection, Yes normocephalic and Yes atraumatic Ears: hearing grossly normal bilaterally Eyes General: appearance normal, both eyes and all related structures Neck Neck: Yes normal visual inspection and Yes trachea midline Chest Chest palpation & inspection: normal inspection of the chest Resp Effort & Inspection: normal respiratory effort and able to speak in complete sentences Cardio Rate: regular rate GI Inspection: Yes normal to inspection General: Yes no CVA tenderness Back/Spine/Pelvis Back: no CVA tenderness Skin General skin exam: no rashes or lesions noted Neuro General: patient oriented x3 Extrem General: Yes normal to inspection Psych Appearance: grossly normal and well kempt Mental Status: mental status grossly normal Speech and movement: Normal speech and movement present and Clear speech present Affect: normal affect Attitude: cooperative Thought process: Normal thought process present Thought content: Normal thought content present Insight: Fair insight present (Psych) Judgement: Fair judgement present (Psych) Results AMB Urinalysis, Automated UA Leukoctes 0 Callie/uL Last Edit by Rebecca Chavis on 04/03/25 09:38 UA Nitrite Negative Last Edit by Rebecca Chavis on 04/03/25 09:38 UA Urobilinogen 3.5 mg/dL Last Edit by Rebecca Chavis on 04/03/25 09:38 UA Protein 0 mg/dL Last Edit by Rebecca Chavis on 04/03/25 09:38 UA pH 6.0 Last Edit by Rebecca Chavis on 04/03/25 09:38 UA Blood 0 Jeffery/uL Last Edit by Rebecca Chavis on 04/03/25 09:38 UA Specific Eunice 1.010 Last Edit by Rebecca Chavis on 04/03/25 09:38 UA Ketone Negative Last Edit by Rebecca Chavis on 04/03/25 09:38 UA Bilirubin 0 mg/dL Last Edit by Rebecca Chavis on 04/03/25 09:38 UA Glucose 0 mg/dL Last Edit by Rebecca Chavis on 04/03/25 09:38 Results Reviewed Results Reviewed: Laboratory Last Values Urine pH (Auto) 6.0 04/03/25 07:42 Specific Eunice (Auto) 1.010 04/03/25 07:42 Urine Protein (Auto) 0 mg/dL 04/03/25 07:42 Glucose (UA)(Auto) 0 mg/dL 04/03/25 07:42 Urine Ketones (Auto) Negative 04/03/25 07:42 Urine Blood (Auto) 0 Jeffery/uL 04/03/25 07:42 Urine Nitrite (Auto) Negative 04/03/25 07:42 Urine Bilirubin (Auto) 0 mg/dL 04/03/25 07:42 Urine Urobilinogen (Auto) 3.5 mg/dL 04/03/25 07:42 Leukocyte Esterase (Auto) 0 Callie/uL 04/03/25 07:42 Date of Service: 03/19/25 Procedure(s): US retroperitoneal comp Findings: The kidneys are normal in echotexture bilaterally. No hydronephrosis. The right kidney is normal in size, measuring 10.7cm in length. The left kidney is normal in size, measuring 11.2cm in length. The urinary bladder is unremarkable. Prevoid volume 272.6 mL. Postvoid volume 41.4 mL. Ureteral jets are visualized bilaterally. The prostate is normal in size, measuring 4.1 x 3.3 x 2.9cm, volume of 20.6 mL. Impression: Normal retroperitoneal ultrasound. Assessment & Plan Assessment & Plan (1) Weak urinary stream: Code(s): R39.12 - Poor urinary stream Category: Medical Plan In office urinalysis results with the patient today; as noted above. PVR 0 mL. Recent retroperitoneal ultrasound results reviewed with the patient today; as noted above. He currently denies any bothersome urinary issues or concerns. We will continue with surveillance monitoring. We discussed attempting to sit when voiding to relax pelvis and assist with bladder emptying. We discussed potential near future in office cystoscopy and or urodynamics for further assessment evaluation. Follow-up in 6 months; or sooner with any issues, concerns, and or questions. Orders: Orders AMB Urinalysis Automated Today Z13.9 - Encounter for screening, unspecified AMB Post Void Residual by ultrasound Today R39.12 - Poor urinary stream Patient Instructions: The patient had an opportunity to ask questions regarding the treatment plan. All questions were answered. Physical exam, labs, and imaging were discussed and reviewed in detail. As well as risks, benefits, and discussion of treatment choices. No major barriers to understanding were identified. The patient expressed understanding and agreement with the above treatment plan. The patient was made aware they should contact our office by phone for worsening of their current condition, the appearance of new symptoms, or with any questions or concerns. Compliance is encouraged with any medications and follow up testing that is ordered. It is a privilege to be allowed the opportunity to participate in? your urological care.? Again, if you have any questions or concerns If you have any questions or concerns please do not hesitate to contact me. The office is [phone]. This note is constructed using voice recognition software. While every effort has been made to ensure accuracy transfer and line up worker errors may have been included. Yours sincerely, SONY Armas Coding Level of Care Code Est Pt Level 3 (07211) Diagnoses Weak urinary stream R39.12
--- OUTSIDE RECORDS SUMMARY | 2025-04-03 10:17 | XMS_ITS | Data Portability ---
Demographics Address [address] [place] [address] Home Phone Mobile Phone Email Address Preferred Language en Marital Status Never Uatsdin Affiliation Unknown Race White Ethnic Group Not or Lati no Author Organization [facility] Patient Home Address [address] [place] [address] Assessment No assessment recorded. Plan of Treatment Reminders Order Date Submit Date Provider Last Modified By Organization Details Last Modified Time Details Appointments ANNUA L EXAM 2025 03:30P MOE EUBANKS Not available Not available Not available Lab MMRV immun ity, serum or plasm a 2024 025 ATHENAFAX [facility], [address] [place], [address], 03/22/2025 14:40:04 iron + TIBC + ximena tin, serum [...] The Location Of Their Choice, 11/27/2024 09:46:11 hemog lobin A1c, QN, blood [...] TSH + free T4, serum 2024 025 [email or web address] [facility] (Centralized Electronic [...] entat ion rate) , blood 2023 024 [facility], [address] [place] [address], [place], [address], 02/24/2024 15:53:08 C-karina ctive prote in, quant itati ve, serum or plasm a 2023 024 [facility], [address] [place] [address], [address], 02/24/2024 15:53:09 gamma -glut amyl trans feras e (ggt) , serum 2023 024 [facility], [address] [place] [address], [address], 02/24/2024 15:53:09 iron + TIBC + ximena tin, serum 2023 024 [facility], [address] [place] [address], [address], 03/19/2024 11:14:31 amyla se + lipas e, serum 2023 024 [facility], [address] [place] [address], [address], 02/24/2024 15:53:09 calpr otect in, stool 2023 024 [facility], [address] [place] [address], [address], 02/24/2024 15:53:08 CMP, serum or plasm a 2023 024 [facility], [address] [place] [address], [address], 02/24/2024 15:52:24 lipid panel , blood 2023 024 [facility], [address] [place] [address], [address], 02/24/2024 15:52:24 CBC w/ auto diff 2023 024 [facility], [address] [place] [address], [place], [address], 02/24/2024 15:52:24 hemog lobin A1c, QN, blood 2023 024 [facility], [address] [place] [address], [place], [address], 02/24/2024 15:52:24 vitam in D, 25-hy droxy , total , serum 2023 024 [facility], [address] [place] [address], [place], [address], 05/23/2024 11:22:36 PSA, total + free, serum or plasm a 2023 024 [facility], [address] [place] [address], [address], 03/06/2024 11:23:24 CMP, serum or plasm a 2022 023 [facility], [address] [place] [address] [place], [address], 02/21/2023 16:51:39 lipid panel , blood 2022 023 [facility], [address] [place] [address] [place], [address], 02/21/2023 16:51:39 CBC w/ auto diff 2022 023 [facility], [address] [place] [address] [place], [address], 02/21/2023 16:51:38 PSA, serum or plasm a 2022 023 [facility], [address] [place] [address] [place], [address], 02/21/2023 16:51:39 CMP, serum or plasm a 2021 022 [facility], [address] [place] [address], [place], [address], 02/17/2022 15:55:14 lipid panel , blood 2021 [facility], [address] [place] [address], [place], [address], 02/17/2022 15:55:13 CBC w/ auto diff 2021 [facility], [address] [place] [address], [place], [address], 02/23/2022 11:50:04 Referral gener al surge on refer ral 2023 024 [facility], [address], [place], [address], 02/27/2024 08:59:36 vadim ic couns elor refer ral 2023 024 [facility], [address], [place], [address], 02/27/2024 08:59:35 derma tolog ist refer ral 2022 023 [email or web address] 10 [facility], [address] , [place], [address], 02/23/2023 08:22:17 gastr jd erilly ist refer ral 2022 023 [email or web address] 10 [facility], [address], [place], [address], 02/23/2023 08:22:34 gastr jd reilly ist refer ral 2021 022 [facility], [address], [address], [place], [address], 02/19/2022 09:46:03 Procedures None recor ded. Surgeries None recor ded. Imaging None recor ded. Medication Orders triam cinol one aceto nide 0.1 % topic al cream [address] [id number], [address] [facility], [place], [address], 02/24/2024 15:41:22 Patient TargetsNo targets recorded. Patient InstructionsNo instructions recorded. 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 [email or web address] [facility] Central Scheduling [address] [place], [address], 08/19/2023 14:00:13 12/12/19 25 12/12/2024 US, abdom en No observ ation record ed. [email or web address] [facility] (Medical Records) [address] [place], [address], 12/13/2024 12:02:42 03/19/20 25 03/19/2025 US, retro perit oneum , compl ete No observ ation record ed. [email or web address] [facility] (Medical Records) [address] [facility], [place], [address], 03/19/2025 15:39:45 Result Notes None recorded. Problems Name Problem SNOMED Code Status Onset Date Resolution Date Notes Provider Name and Address Organization Details Recorded Time History of depressio n 377629419 Active 2017 [facility] 8 12:22:54 Lipoma of skin 445438480 Active 2022 MOE BAUMAN [address] [place] [address], [address], [facility] 3 15:52:18 Eczema 10468170 Active 2022 MOE BAUMAN [address] [place] [address], [address], [facility] 3 15:56:40 Weight gain 1396204 Active 2022 MOE BAUMAN [address] [place] [address], [address], [facility] 3 15:58:06 Atypical facial pain 75072814 Active 2022 MOE BAUMAN [address] [place] [address], [address], [facility] 3 10:31:19 Diarrhea 51770579 Active 2023 MOE BAUMAN [address] [place] [address], [address], [facility] 4 15:41:25 Esophagea l dysphagia 83577787 Active 2023 MOE BAUMAN [address] [place] [address], [address], [facility] 4 15:58:58 Lipoma of head and/or neck 196152734 Active 2023 MOE BAUMAN [address] [place] [address], [address], [facility] 4 16:00:52 Fatigue 65496659 Active 2024 MOE BAUMAN [address] [place] [address], [address], [facility] 5 09:41:00 Influenza caused by Influenza A virus 929081146 Active 2024 MOE BAUMAN [address] [place] [address], [address], [facility] 5 09:42:03 Impaired fasting glycemia 940225162 Active 2024 MOE BAUMAN [address] [place] [address], [address], [facility] 5 14:55:26 Bleeding gums 87139983 Active 2024 MOE BAUMAN [address] [place] [address], [address], [facility] 5 14:55:54 Carpal tunnel syndrome of left wrist 655412472406 102 Active 2024 MOE BAUMAN [address] [place] [address], [address], [facility] 5 14:56:12 Overactiv e urinary bladder 817183011 Active 2024 MOE BAUMAN [address] [place] [address], [address], [facility] 5 14:57:03 Problem Notes None recorded. Medical Equipment None [...] Updated DateTime 5 167.01 cm 27 kg/m2 68994.9 7 g 84 /min 97 % 97 % 112 mm[Hg] 78 mm[Hg] Celena Aldrich [facility] 5 09:24:08 Date Recorded Body height Body mass index (BMI) Body weight Heart rate Oxygen saturation Oxygen saturation in Arterial blood by Pulse oximetry Systolic blood pressure Diastolic blood pressure Provider Name and Address Organization Details Last Updated DateTime 2 167.01 cm 28.3 kg/m2 58318.3 5 g 75 /min 98 % 98 % 110 mm[Hg] 70 mm[Hg] MOE BAUMAN [address] [place], [address] [place] [address] Internal Medicine 2 15:35:37 Date Recorded Body height Body mass index (BMI) Body weight Heart rate Oxygen saturation Oxygen saturation in Arterial blood by Pulse oximetry Systolic blood pressure Diastolic blood pressure Provider Name and Address Organization Details Last Updated DateTime 3 167.01 cm 29.2 kg/m2 84704.8 3 g 87 /min 95 % 95 % 102 mm[Hg] 70 mm[Hg] Jonna Brown [facility] 3 15:43:23 Date Recorded Body height Body mass index (BMI) Body weight Heart rate Oxygen saturation Oxygen saturation in Arterial blood by Pulse oximetry Systolic blood pressure Diastolic blood pressure Provider Name and Address Organization Details Last Updated DateTime 4 167.01 cm 30 kg/m2 28623.7 9 g 79 /min 98 % 98 % 110 mm[Hg] 79 mm[Hg] Celena Aldrich [facility] 4 15:36:54 Date Recorded Body height Body mass index (BMI) Body weight Heart rate Oxygen saturation Oxygen saturation in Arterial blood by Pulse oximetry Systolic blood pressure Diastolic blood pressure Provider Name and Address Organization Details Last Updated DateTime 5 167.01 cm 26.8 kg/m2 80347.9 4 g 96 /min 96 % 96 % 102 mm[Hg] 70 mm[Hg] Tessa Sol [facility] 5 14:26:39 Social History Question Answer Notes LastModified by Organizat ion Details LastModified Time Tobacco Smoking Status Never Smoker Not Available [facility] 08/26/2020 03:36:24 What Was The Date Of Your Most Recent Tobacco Screening? 03/22/2025 [email or web address] Information not available 03/22/2025 Sex: Unknown Functional Status Question Answer Note [...] mcg/0.3 mL dose 02/20/2021 completed Iesha cam [facility] 07/31/2021 09:23:33 COVID-19, mRNA, LNP-S, PF, 30 mcg/0.3 mL dose 03/13/2021 completed Iesha cam [facility] 07/31/2021 09:23:38 Past Encounters Encounter ID Performer Location Encounter Start Date Encounter Closed Date Diagnosis/Indication Diagnosis SNOMED-CT Code Diagnosis ICD10 Code Diagnosis Note [id number] DO [facility] [address] [facility],[place] [address] 05/30/2018 13:21:37 05/30/2018 15:18:33 History of depression 964144583 Z86.59 seeing therapy Fatigue 14873984 R53.83 if lyme neg - will repeat in 2 weeks DDX: thyroid, anemia, lyme, viral prodrome, depression Pain of left wrist 49662 55106 14141 M25.532 likely residual pain from sprain conservati ve treatment here until labs reviewed - ice rest stretch, nsaids will review labs Pain of le ft shoulder joint 1352823295 3833095 M25.512 unclear etiology will await blood work again - conservati ve treatment here until labs reviewed - ice rest stretch, nsaids [id number] [facility] [address] [place] [address],[place] [address] 07/31/2021 09:16:19 07/31/2021 10:44:25 Hernia of anterior abdominal wall 089805817 K43.9 will fu with US Lipoma of skin 723536384 D17.0 existing already on the neck [id number] [facility] [address],[place] [address] 09/14/2021 14:11:25 09/14/2021 15:06:58 Fatigue 00855840 R53.83 will fu with lab work for increased fatigue and increase urinary Increased frequency of urination 602781156 R35.0 will check his urine [id number] [facility] [address] [place] [address],[place] [address] 02/17/2022 15:30:06 02/17/2022 17:03:29 Active or passive immunization 551608542 Z23 advised Adult heal th examination 820898379 Z00.00 BP is excellent today Screening colonoscopy 44 6808597 Z12.11 will fu with GI for colonscopy given history of colon cancer [id number] [facility] [address] [place] [address],[place] [address] 02/21/2023 15:28:13 02/21/2023 17:07:19 Active or passive immunization 445339417 Z23 advised Adult heal th examination 551557682 Z00.00 BP is excellent today Lipoma of skin 732801679 D17.0 existing already on the neck Eczema 56357439 L20.89 will start on topical when he needswill call Weight gain 3853166 R63. 5 will try melatonin and apple cider vinegar combinatio n Family his tory of cancer of colon 354524889 Z80.0 [id number] [facility] [address] [facility],[place] [address] 02/24/2024 15:31:58 02/24/2024 16:38:39 Active or passive immunization 138344835 Z23 advised Adult heal th examination 014261504 Z00.00 BP is excellent today Depression screening 171 637686 Z13.31 stable Eczema 81467992 L20.89 will start on topical when he needswill call if not effective Diarrhea 97078547 A07.8 states he is going to the bathroom for a bowel movement 4 to 5 times per dayis solidno blood or mucusCT with gastro was negative, no abnormal findingsdi d have some benign cysts in his liver Family his tory of Alzheimer's disease 296136013 Z81.8 agreed to generic screening due to fam hx Esophageal dysphagia 408 [address]7029 R13.19 will do lab work first and fu with pt Lipoma of head and/or neck 727608226 D17.0 willl fu with derm referral [id number] [facility] [address] [facility],[place] [address] 11/27/2024 09:14:21 11/27/2024 10:25:17 Fatigue 16091044 R53.83 will check lab work Influenza caused by Influenza A virus 195316495 J09.X2 resolved [id number] [facility] [address] [facility], [place] [address] 03/22/2025 14:13:24 03/22/2025 15:01:54 Active or passive immunization 758579165 Z23 advised General ex amination of patient 249436737 Z00.00 BP is excellent today Immunization due 5959565 08 Z23 would like to check titers for her MMRVwill give him order to check Impaired f asting glycemia 637373682 R73.01 will continue to monitor Bleeding gums 16854754 K 06.8 fu with dentistgiv en one to try in [facility] n Carpal avinash jodie syndrome of left wrist 4130189810 24157 G56.02 start with bracesif no improvemen t will do EMG Overactive urinary bladder 698437115 N32.81 will fu with urology Health Concerns Section Related Observation LastModified by Organization Detai ls LastModified Time None Recorded Concern Status LastModified by Organization Details LastModified Time None Recorded Advance Directives Directive None Recorded Payers Encounter Date Sequence Insurance Name Policy Number Policy Bowman Covered Member ID Bowman Member ID Guarantor Name 02/17/2022 1 [facility] [id number] 1 Caesar Ashley [id number] Caesar Ashley 02/21/2023 1 [facility] [id number] 1 Caesar H Dion [id number] Caesar Francisca Dion 02/24/2024 1 [facility] [id number] 1 Caesar H Dion [id number] Caesar Francisca Dion 11/27/2024 1 [facility] [id number] 1 Caesar Espinosa Dion [id number] Caesar Espinosa Dion 03/22/2025 1 [facility] [id number] 1 Caesar Espinosa Dion [id number] Caesar Espinosa Dion Notes Date Note Type Note Provider Name and Address Organization Details Recorded Time text/html Annual WellnessReported bypatient.Diet and Nutrition:healthy diet; [...] vision problems; wears glasses PRN MOE BAUMAN [address] [place] [address], [address], [facility] 02/17/2022 15:55:17 3 text/html [...] and acne > will also discuss with inpatient auditor MOE BAUMAN [address] [place] [address], [address], [facility] 02/21/2023 16:18:42 4 text/html [...] was a bit agodid recently see his student dean which everything looked good MOE BAUMAN [address] [place], [address], [facility] 02/24/2024 16:02:47 5 text/html c/o [...] or stooldenies flank pain MOE BAUMAN [address] [place], [address], [facility] 11/27/2024 09:48:31 5 text/html Annual WellnessReported bypatient.Diet and Nutrition:healthy diet; discussed vitamin and supplement use; discussed portion control; discussed maintaining calcium balance; discussed diet improvement Fracture Risk:no history of fractures; no recent explained fracture; no sudden unexplained fractures; no previous musculoskeletal injuries Physical Activity:exercises on a regular basis; recent increase in physical activity; good physical condition Additional Lifestyle Factors:no tobacco use; no alcohol intake; stopped drinking alcohol Depression Risk:never feels sad, empty, or tearful; no loss of interest in activities; no significant changes in weight; no sleep disturbances or insomnia; no agitation; no loss of energy; no feelings of worthlessness or guilt; no thoughts of suicide; no history of depression; no history of mood disorders Hearing:no loss of hearing Vision:no vision problems recommended dentist for patient to f/u with them about continuedwill continue to monitor his a1c 5.7%recommended lower carb, higher protein for energy source, better sleep schedule having numbness in the left ring and middle finger?carpal tunnel vs ulnar compartment compressionthe patient reports that it worsens with bending the elbowchanged ergonomics for him at work > if no improvement the patient reports that he is still having urinary issuesUS was normal, recommended to fu with uro, which he has already?overactive bladder MOE BAUMAN [address] [place] [address], [place], [address], [facility] 03/22/2025 14:57:36
== END 2025-04-03 09:58 | disposition home or self-care (01) ==
LOC: HO.HUSH 09:26
PROVIDERS: PCP Physician Assistant; Visit Provider Nurse Practitioner Family
DX: Z13.9 Encounter for screening, unspecified (principal); R39.12 Poor urinary stream
CPT/HCPCS: 99213

== ENCOUNTER → 2025-04-03 09:26 | Outpatient (BNVA) | payer OTHER, SELFPAY | PROVIDERS: PCP Physician Assistant; Visit Provider Nurse Practitioner Family | DX: R39.12 Poor urinary stream (principal) | CPT/HCPCS: 81003 ==

== ENCOUNTER 2025-10-22 09:43 | Outpatient (AMB) | payer OTHER, SELFPAY ==
--- NOTE | 2025-10-22 09:44 | A.OFFVIS_ITS ---
Vital Signs 10/22/25 09:50 Height 5 ft 6 in Weight 170 lb BMI 27.4 BP 106/68 Blood Pressure Location Lt brachial Position Sitting Pulse 82 Pulse Source Pulse Oximeter Pulse Oximetry (%) 100 Oxygen Delivery Method Room Air Intake Visit Reasons: 1 YR FUV. Constipation + Liver abn. Intake Note: Est pt for mgmt of [facility] + Fatty liver. CC; C/O chronic constipation which still bothers him occasionally. He denies any additional sx or concerns. Confirms he is taking soluble fiber daily, 1/2 to 1 tbsp. However, this only helps intermittently. 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 Constipation + Liver abn.: Details: LAST VISIT: Liver hemangioma Family history of cancer of small intestine Urinary hesitancy Constipation Plan Limited ultrasound of the abdomen to re-evaluate liver hemangiomas. Patient r eports urinary hesitancy possible due to enlarged prostate. Patient will be referred to urologist. Dark stool, negative for melena hematochezia. Patient will think about it if he wants to go for colonoscopy which was offered him today. Patient does have a family history of small intestine cancer. Paternal grandfather which he was not close with and does not know for sure. Patient reports constipation. Increase fluid intake and activity to promote better bowel motility. Patient was encouraged to get onbj-wjr-csjufon fiber with probiotics. Increase fiber in his diet as well. Patient will follow-up in our office in 1 year. He will call us if he will have any GI concerning symptoms. He is agreeable to this plan and verbalizes understanding of instructions. He was given the opportunity to ask questions and all questions answered. ? Thank you for allowing me participate in his care Orders US abdomen limited Today D18.03 Referrals Urology Referral R39.11 TODAY'S VISIT Patient is here today for follow-up. Patient reports that he has been feeling fairly well. Take fiber supplement daily and reports to be constipated. Denies melena, hematochezia, unintentional weight loss or ribbon like stools. Denies any dyspepsia, dysphagia or odynophagia. Patient reports that he has been feeling fairly well. Ultrasound shows normal liver, small hemangioma seen. Patient reports to have a good appetite. Denies any other GI concerning symptoms. PFSH Family History Paternal Grandfather Colon cancer Social History Household Members: None Alcohol intake: current Alcohol intake frequency: a few times a month Patient Tobacco Use Status: Never used Tobacco e-Cigarette/Vaping Use: Never Used Review of Systems Const Denies weight gain and Denies weight loss ENT Reports no additional complaints, Denies dysphagia and Denies odynophagia Card Reports no additional complaints Resp Reports no additional complaints GI Denies abdominal pain, Denies belching, Denies melena, Denies bloating, Denies change in bowel habits, Reports constipation, Denies dysphagia, Denies excessive flatus, Denies dyspepsia, Denies heartburn, Denies diarrhea, Denies loose stools, Denies nausea, Denies odynophagia and Denies vomiting Reports no additional complaints Musc Reports no additional complaints Neuro Reports no additional complaints Psych Reports no additional complaints Endo Reports no additional complaints Physical Exam Vital Signs: Last Vital Signs Pulse 82 10/22/25 09:50 BP 106/68 10/22/25 09:50 Pulse Ox 100 10/22/25 09:50 Oxygen Delivery Method Room Air 10/22/25 09:50 BMI result Body Mass Index 27.4 Const General: healthy appearing, no acute distress and well developed Nutritional Appearance: well nourished Orientation/consciousness: patient oriented x3 Resp Effort & Inspection: normal respiratory effort, able to speak in complete sentences, no tracheal deviation and symmetric chest movement Auscultation: clear to auscultation bilaterally Cardio Rate: regular rate GI Inspection: Yes normal to inspection and No distended Palpation (GI): Soft to palpation, not firm, nontender and No hepatosplenomegaly present Auscultation: normal bowel sounds General: Yes no CVA tenderness Back/Spine/Pelvis Back: no CVA tenderness Skin General skin exam: elasticity normal, turgor normal and dry skin Neuro General: patient oriented x3 Psych Appearance: grossly normal Mental Status: mental status grossly normal Results Reviewed Results Reviewed: ABDOMINAL ULTRASOUND NOVEMBER OF 2024 Findings: The liver is normal in size, measuring 15.5 cm in length. Normal echogenicity with an echogenic lesion in the right lobe of the liver measuring 2.0 x 2.0 x 1.8 cm, likely a hemangioma. Hepatopetal flow is seen within the portal vein. The common bile duct is normal in diameter, measuring 0.3 cm. No cholelithiasis. No wall thickening or pericholecystic fluid. Negative sonographic Orosco sign. The right kidney is normal in echogenicity and size, measuring 11.5 cm in length. Unremarkable limited evaluation of the pancreas. Impression: 2.0 cm echogenic lesion in the right lobe of the liver is likely a hemangioma. Negative for acute cholecystitis. Assessment & Plan Assessment & Plan (1) Hemangioma of liver: Code(s): D18.03 - Hemangioma of intra-abdominal structures (2) Family history of malignant neoplasm of small intestine: Code(s): Z80.0 - Family history of malignant neoplasm of digestive organs (3) Constipation: Code(s): K59.00 - Constipation, unspecified Qualifiers: Constipation type: slow transit constipation Qualified Code(s): K59.01 - Slow transit constipation Plan Patient was encouraged to increase fluid intake and activity to promote bowel motility. Patient will start taking Senokot as needed. Continue fiber therapy. He follow-up in 1 year. Patient was encouraged to call as if he will have any GI concerning symptoms. He is agreeable to this plan and verbalizes understanding of instructions. He was given the opportunity to ask questions and all questions answered. Thank you for allowing me to participate in his care Medications: New sennosides (Evac-U-Gen (sennosides)) 17.2 mg (2 x 8.6 mg) PO BEDTIME 180 tabs 2RF K59.00 - Constipation, unspecified Coding Level of Care Code Est Pt Level 3 (36824) Diagnoses Hemangioma of liver D18.03 Family history of malignant neoplasm of small intestine Z80.0 Slow transit constipation K59.01 Constipation type: slow transit constipation Time Spent (min) 25 Comment 15 minutes spent with patient and additional 10 minutes spent reviewing his records
[2025-10-22 09:50] VITALS: BP 106/68; PULSE 82; O2SAT 100; BMI 27.4
--- OUTSIDE RECORDS SUMMARY | 2025-10-22 12:31 | XMS_ITS | Clinical Summary ---
Author Organization [facility] Address [address] [place] [address] Phone Care Team Providers Care Clerk Supervisor Name Role Phone Maurice Clayton MD Unavailable [phone] Harsh Morrison DO Primary Care Provider [phone] Allergies Active Allergy Reactions Criticality Noted Date Comments Other 04/05/2019 Sport tapes Medications multivitamins with minerals- folic acid-lycopene (MEN'S ONE-A-DAY) 400-20-300 mcg Tab Take 1 tablet by mouth daily. Active docosahexanoic acid/epa (FISH OIL ORAL) Take by mouth. Activ e cholecalciferol (VITAMIN D3) 50,000 unit tablet Take 1 tablet (50,000 Units total) by mouth once a week. 8 tablet 9 Active Additional Information Patient not taking.Reported on 02/14/2021 escitalopram oxalate (LEXAPRO) 5 MG tablet TAKE 2 TABLETS BY MOUTH DAILY 60 tablet 5 9 Active Additional Information Patient not taking.Reported on 12/13/2023 fluticasone propionate (FLONASE) 50 mcg/actuation nasal spray 2 sprays by Nasal route daily. 16 g 1 Active Additional Information Patient not taking.Reported on 12/13/2023 meclizine (ANTIVERT) 12.5 mg tablet Take 1 tablet (12.5 mg total) by mouth every 6 (six) hours as needed. 20 tablet 1 Active Additional Information Patient not taking.Reported on 12/13/2023 Active Problems Problem Noted Date Diagnosed Date Healthcare maintenance 04/05/2019 Assessment & Plan (04/06/2019 5:20 AM EDT): STD screening: He is currently not sexually active. Underwent STD screening in December 2017. No particular concerns for now. Ophthalmology care: Wears glasses, and renewed his prescription for glasses today due to mild change in vision. Dental care: Sees an scuba dive training instructor in every two months. 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 Currently he is in [employer] school and learning [employer] planning; started in June 2018. Lives in [place] with four roommates. Diet and exercise: Does not eat healthy food, and his diet includes combination of fast food and sweets. His diet includes home cooked and outside food. Enjoys biking for about 3-4 miles a day, and his job requires 3-4 miles walking in his 6 hours shift. - Recommended eating home cooked food; significance explained. - Encouraged continuing exercise and being physically active to improve his mental and physical health. Sleep: Denies difficulty in staying asleep, and has interrupted sleep at night occasionally in every 1-2 weeks. Immunization: Mentions that he haven't received any immunization since his early teens. - Provided tetanus vaccinations; protocol, indications, timelines and significance explained. Labs: His last blood work was done in April 2018. Malaise and fatigue 04/05/2019 Assessment & Plan (04/06/2019 5:22 AM EDT): Reports increased fatigue and sleepiness even after taking adequate sleep, and this is ongoing since May 2018. Saw a physician in the past, and underwent routine lab work in April 2018, to evaluate his symptoms; however, it was normal at that time. Sleep for about 8 hours a day, and feels fatigued after waking up. Agrees that he snores at night, and denies loosing interest in physical activity as enjoys going out for walking and riding bike. Suspects it to be related to the dehydrations or a flue infection, and hence tried drinking plenty of water with some improvement. Has depression and anxiety, that is ongoing for long time. His last lab work for thyroid dysfunction was normal. - Likely due to stress and anxiety. - Reviewed and discussed past lab records. - Ordered labs to check for CMP, CBC and differential, lipid panel, Hb A1c and 25-OH vitamin D to rule out underlying pathology. - Discussed possible etiologies of fatigue that includes anemia, sleep apnea, thyroid dysfunction and depression. - Will treat underlying anxiety and depression to see if any improvement is noted. Numbness 04/05/2019 Assessment & Plan (04/06/2019 5:21 AM EDT): Developed numbness and tingling sensation in his hands and feet after starting his new job for two months. Started noticing numbness in his hands (more prominent in right hands, more in right foot than the left, and mild numbness in left hand) approximately 2-3 weeks after joining his job. His numbness is persistent throughout the day with low intensity. Has numbness and tingling around the palm area which is connected to the four fingers, and spreads mostly in middle, ring and small fingers. - Likely due to Carpal tunnel syndrome; associated with frequent movement required at work, and standing for long time. - Unlikely due to neurological symptoms given his description of symptoms. - Ordered labs to check for vitamin B 12 to rule out underlying pathology. - Recommended wearing splints for wrists at night or during the daytime at work if willing, and also advised to wear comfortable shoes at work; significance explained. - Recommended applying ice along with ibuprofen as needed to relieve inflammation of nerve. Lump in neck 04/05/2019 Assessment & Plan (04/06/2019 5:21 AM EDT): Noticed bump on right side of his neck, that is present there for a year. It is not associated with pain, even on pressure. Unsure if it was present for more than a year before noticing it. - Likely to be lipoma; pathophysiology and clinical features explained. - Discussed that it is benign and non concerning; however, will consider ultrasound to rule out any underlying concerning pathology. Ordered ultrasound for soft tissue of head and neck. - Discussed excision of the lump as the cosmetic management option; discussed possible risks associated related to the site. Recurrent major depressive disorder, in partial remission 05/29/2018 Assessment & Plan (04/06/2019 5:24 AM EDT): This is ongoing for a long time. Tried different medications during his college mostly Zoloft; also, took regular counseling sessions without much help and hence stopped taking it for a while. Restarted counseling sessions from 2015 till the end of 2018 without medications; seems that it did not help him much. His symptoms have somewhat improved at present, and does not have similar stress and anxiety as felt in college and high school. Relates his symptoms to not being around positive people professionally and socially for a long time. Intends to be around more positive people to improve his stress and anxiety. He was not satisfied with his experience with SSRIs, as did not have a happy or helpful feeling with them. Concerned that medications just mask the problem, make him numb without really helping. - Discussed different management strategies such as trying different low dose SSRIs such as Lexapro or different therapist if willing. Actions and significance explained; he is amenable to try low dose Lexapro. - Prescribed Lexapro 5 mg to be taken one tablet once a day for 1-2 weeks to see if any improvement is noted. - Will uptitrate the dosage of Lexapro 5 mg to 10 mg (two tablets of 5 mg at a time) if does not have any side effects or has improvement with it. - Possible improvement period discussed. - Discussed possible sexual side effects such as delayed orgasm, that resolves after discontinuing the medication(Lexapro). - Apprise me if willing to try therapy in the future. - Encouraged exercising regularly to improve depression symptoms in addition to medications; significance explained. Immunizations Immunization Administration Dates Next Due COVID-19 (Pre-08/15) Pfizer Vaccine, mRNA, PF ,02/20/2021 Influenza Quadrivalent Preservative Free IM 07/25 Tdap 04/05/2019 Family History Medical History Relation Comments Hypertension Maternal Grandfather Diabetes Maternal Grandmother Glaucoma Maternal Grandmother Hypertension Maternal Grandmother Stomach cancer Paternal Grandfather Alzheimer's disease Paternal Grandmother Relation Status Comments Father Alive Maternal Grandfather Alive Maternal Grandmother Mother Alive Paternal Grandfather Paternal Grandmother Social History Tobacco Use Types Packs/Day Years Used Date Smoking Tobacco: Never Smokeless Tobacco: Never Tobacco Cessation:Counseling Given: Not Answered Alcohol Use Standard Drinks/Week Comments Yes 0 (1 standard drink = 0.6 oz pur e alcohol) once a month Child or Family Care Answer Date Record ed Do you have problems with on e of the following making it difficult for you to work, study, or receive health care? No 04/05/2019 Education Answer Date Recorded Are you interested in more education? Not on abdiel e 02/18/2023 Are you concerned about learning? Not on file 02/18/2023 No 02/18/2023 No 02/18/2023 Food Answer Date Recorded Within the past 6 months we worried whether our food would run out before we got money to buy more. Never True 04/05/2019 Within the past 6 months the food we bought just didn't last and we didn't have enough money to get more. Never True 9 Paying for Meds Answer Date Recorded Do you have trouble paying for medicines? No 04/05/2019 Paying Utility Bills Answer Date Record ed Do you have trouble paying your heating or elect ricity bill? No 04/05/2019 Transportation Answer Date Recorded Has the lack of transportati on kept you from medical appointments or from getting medications? No 04/05/2019 Digital Access Answer Date Recorded No 03/21/2023 No 03/21/2023 Reliable internet access at home? Not on file 03/21/2023 Device with a working camera? Not on file Sex and Gender Information Value Date Recorded Sex Assigned at Not on file Legal Sex Male 9:33 AM EDT Gender Identity Not on file Sexual Orientation Not on file Last Filed Vital Signs Vital Sign Reading Time Taken Comments Blood Pressure 109/72 12/13/2023 8:39 AM EST Pulse 87 12/13/2023 8:39 AM EST Temperature 36.8 C (98.3 F) 12/13/2023 8:39 AM EST Respiratory Rate 18 12/13/2023 8:39 AM EST Oxygen Saturation 99% 12/13/2023 8:39 AM EST Inhaled Oxygen Concentration - - Weight 81.6 kg (180 lb) 02/14/2021 3:21 PM EDT Height 167.6 cm (5' 6 ) 02/14/2021 3:21 PM EDT Body Mass Index 29.05 02/14/2021 3:21 PM EDT Plan of Treatment Health Maintenance Due Date Last Done Comments HEPATITIS C SCREENING 2000 DEPRESSION SCREENING 04/05/2020 04/05/2019 LIPID PANEL 04/05/2024 04/05/2019, 04/05/2019 INFLUENZA VACCINE (#1) 2025 08/14/2020 COVID-19 VACCINE (3 - 2024-2 6 season) 2025 03/13/2021, 02/20/2021 Adult Td,Tdap Booster 04/05/2029 04/05/2019 HIV ONE-TIME SCREENING (18-6 5 YEARS) Completed 04/27/2019 SMOKING STATUS SCREENING (On ce After 26 Yrs) Completed 12/13/2023 HEPATITIS A VACCINES Aged Out No long er eligible based on patient's age to complete this topic HIB VACCINES Aged Out No longer eligi ble based on patient's age to complete this topic MENINGOCOCCAL VACCINES (ACWY) Aged Out No longer eligible based on patient's age to complete this topic MENINGOCOCCAL VACCINES (B) Aged Out N o longer eligible based on patient's age to complete this topic PNEUMOCOCCAL VACCINES (0-49 years) Aged Out No longer eligible b ased on patient's age to complete this topic Medical Devices Not on file Procedures Procedure Name Priority Date/Time Associated Diagnosis Comments LIPID PANEL Routine 04/05/2019 10:50 AM EDT Healthcare maintenance from Last 3 Months or Most Recently Relevant to Health Maintenance Results * (ABNORMAL) Lipid panel (04/05/2019 10:50 AM EDT) HDL 52 35 - 100 mg/dL [facility] CHOLESTEROL 206(H) <200 mg/dL [facility] TRIGLYCERIDES 84 40 - 150 mg/dL [facility] LDL 137(H) 50 - 129 mg/dL [facility] CARDIAC RISK RATIO 4.0 0.0 - 5.0 [facility] NON-HDL CHOLESTEROL 154 mg/dL [facility] Comment:NCEP ATP III guideli jennifer suggest a non-HDL cholesterol goal 30 mg/dl higher than the patient-specific LDL goal. Blood 04/05/2019 10:5 0 AM EDT 04/05/2019 7:04 PM EDT us Maurice Clayton MD LAB BLOOD BKR ORDERABLES Fin al Result [facility] [address] [place] [address] from Last 3 Months or Most Recently Relevant to Health Maintenance [facility] [id number] [facility] Zetta.netLEGACY HEALTHT CIGNA WELLFLEET [facility] CIG[facility] WELLFLEET CIGNA WELLFLEET CIGNA WELLFLEET [facility] CIGNA WELLFLEET CIGNA WELLFLEET [facility] CIGNA WELLFLEET CIGNA WELLFLEET [facility] Member Subscriber Plan / Payer (Ef fective 2019-Present) Name:Caesar Ashley Relation to Subscriber:Self Name:Caesar Ashley Payer ID:[id number] (NAIC) Type:PPO Address: [place] [id number] [facility] Member Subscriber Plan / Payer (Ef fective 2021-Present) Name:Caesar Ashley Relation to Subscriber:Self Name:Caesar Ashley Payer ID:[id number] (NAIC) Type:PPO Address: [place] [id number] [facility] Care Teams Clerk Supervisor Relationship Specialty Start Date End Date Harsh Morrison DO [address] [place] [phone] [email or web address] PCP - General Internal Medicine 12/13/23 Maurice Clayton MD [address] [place] [phone] [email or web address] Primary Care Physician Internal Medicine 02/14/21 Additional Source Comments The information contained in this document represents components of the legal health record. It is not the complete legal health record.[facility]
--- OUTSIDE RECORDS SUMMARY | 2025-10-22 12:32 | XMS_ITS | Encounter Summary ---
Author Organization [facility] Address [address] [place] [address] Phone Care Team Providers Care Syrup Shed Supervisor Name Role Phone Maurice Clayton MD Unavailable [phone] Maurice Clayton MD Unavailable [phone] Maurice Clayton MD Unavailable [phone] Pcp, Not Required Primary Care Provider Unavaila Harsh Reis DO Unavailable Harsh Morrison DO Primary Care Provider [phone] Reason for Visit * Reason Comments Medication Refill Encounter Details Date Type Department Care Team (Late st Contact Info) Description 03/09/2021 Refill [facility] at [address] [place] [address] Amy Bonilla, PA-C [address] [place] [phone] [email or web address] Medication Refill Social History Tobacco Use Types Packs/Day Years Used Date Smoking Tobacco: Never Smokeless Tobacco: Never Alcohol Use Standard Drinks/Week Comments Yes 0 (1 standard drink = 0.6 oz pur e alcohol) once a month Child or Family Care Answer Date Record ed Do you have problems with on e of the following making it difficult for you to work, study, or receive health care? No 04/05/2019 Education Answer Date Recorded Are you interested in help w ith more adult education (for example, completing high school, GED, job training, learning the Polish language, technical skills, or developing parenting skills)? Yes 04/05/2019 Are you concerned about learning? Not on file 04/05/2019 Not on file 04/05/2019 Not on file 04/05/2019 Food Answer Date Recorded Within the past [...] appointments or from getting medications? No 04/05/2019 Sex and Gender Information Value Date Recorded Sex Assigned at Not on file Legal Sex Male 9:33 AM EDT Gender Identity Not on file Sexual Orientation Not on file documented as of this encounter Plan of Treatment Not on file documented as of this encounter Visit Diagnoses Not on filedocumented in this encounter Care Teams Syrup Shed Supervisor Relationship Specialty Start Date End Date Pcp, Not Required [address] [place] [address] PCP - General 02/14/21 12/12/23 Harsh Morrison DO [address] [place] [address] PCP - General Internal Medicine 12/13/23 Maurice Clayton MD [address] [place] [address] Partners Attributed Provider 04/28/19 03/29/21 Maurice Clayton MD [address] [place] [address] [email or web address] Insurance Assigned Provider 09/28/20 07/04/21 Maurice Clayton MD [address] [place] [address] [email or web address] Primary Care Physician Internal Medicine 02/14/21 Harsh Morrison DO [address] [place] [id number] [email or web address] Insurance Assigned Provider 11/29/21 03/12/23 documented as of this encounter Additional Source Comments The information contained in this document represents components of the legal health record. It is not the complete legal health record.[facility]
== END 2025-10-22 10:11 | disposition home or self-care (01) ==
LOC: HO.HGI 09:43
PROVIDERS: PCP Physician Assistant; Visit Provider Nurse Practitioner Family
DX: D18.03 Hemangioma of intra-abdominal structures (principal); Z80.0 Family history of malignant neoplasm of digestive organs; K59.01 Slow transit constipation
CPT/HCPCS: 99213